=== PATIENT | male | born 1960 | race Caucasian/White ===

== ENCOUNTER 2023-04-01 10:13 | Inpatient (IN) ==
--- NOTE | 2023-03-11 10:20 | PAT Medication Instructions ---
Medication Instructions Date of Service March 11, 2023 Home Medications atorvastatin 40 mg tablet 40 mg PO QPM warfarin 10 mg tablet (Coumadin) 10 mg PO QPM cyclobenzaprine 10 mg tablet 10 mg PO HS gabapentin 300 mg capsule 300 mg PO TID hydrocodone 5 mg-acetaminophen 325 mg tablet 1 tab PO HS PRN Pain potassium 0 tab PO QPM ASK your prescriber and surgeon warfarin 10 mg tablet (Coumadin) 10 mg PO QPM Take morning of surgery With a small sip of water, OTHERWISE NOTHING TO EAT OR DRINK AFTER MIDNIGHT: gabapentin 300 mg capsule 300 mg PO TID Take evening before surgery atorvastatin 40 mg tablet 40 mg PO QPM cyclobenzaprine 10 mg tablet 10 mg PO HS gabapentin 300 mg capsule 300 mg PO TID hydrocodone 5 mg-acetaminophen 325 mg tablet 1 tab PO HS PRN Pain (if needed) potassium 0 tab PO QPM Other Notes If you have any questions please call us at [phone] or [phone] or [phone] or [phone]
--- NOTE | 2023-03-18 11:21 | Anesthesiology Consultation ---
Date of Service March 18, 2023 Assessment & Plan (1) Encounter for pre-operative examination: Plan - check coags STAT am DOS. - will request more detailed 05/15/22 cardiac catheterization from [facility] if available, for chart completion. - medical clearance 03/12/23: "...pre-operative clearance for back surgery...risk stratification is low to intermediate...cardiac catheterization done May 2022 noted mild non-obstructive disease...intermediate cardiac risk..." Chart Review Chart Review: Pending: Refer to Additional Notes / Consult section and Patient seen in Pre Admission Testing Teaching & Discussion Pre-Anesthesia Teaching/Discussion Notes: Instructed NPO after midnight before surgery, except medications with 15 cc of water. Medication instructions provided according to the PAT guidelines. History Surgery Operation Date: 04/01/23 10:05 Proposed Procedures p L2-S1 Decompression and Fusion, Spinal Cord Monitoring - Royal Shaikh DO Height/Weight Height: 5 ft 8 in Weight: 114.7 kg Allergies Allergy/AdvReac Type Severity Reaction Status Date / Time acetaminophen [From Percocet] AdvReac Severe chills, Verified 03/11/23 09:36 nausea codeine AdvReac Severe nausea,chil Verified 03/11/23 09:36 ls oxycodone [From Percocet] AdvReac Severe chills, Verified 03/11/23 09:36 nausea Medications Home Medications Medication Instructions Recorded Confirmed Last Taken atorvastatin 40 mg tablet 40 mg PO QPM 01/21/19 03/11/23 Unknown warfarin 10 mg tablet (Coumadin) 10 mg PO QPM 01/21/19 03/11/23 Unknown cyclobenzaprine 10 mg tablet 10 mg PO HS 03/11/23 03/11/23 Unknown gabapentin 300 mg capsule 300 mg PO TID 03/11/23 03/11/23 Unknown hydrocodone 5 mg-acetaminophen 325 1 tab PO HS PRN Pain 03/11/23 03/11/23 Unknown mg tablet potassium 0 tab PO QPM 03/11/23 03/11/23 Unknown Past Medical History Medical History (Updated 03/18/23 @ 11:35 by Claudia Griffiths PA-C) GERD (gastroesophageal reflux disease) occasional Spinal stenosis of cervical region Moderate to severe at C5-6 with chronic neck pain, denies change or worsening CVA (cerebral vascular accident) 2005 after aortic valve replacement, no deficits Sleep apnea CPAP-compliant Chronic anticoagulation follows [facility] and Dr Cari Crawford (prescribes) next appointment 03/12/2023 Patient denies h/o seizures, heart attack, heart failure, DM, HTN, blood clots/DVTs or blood transfusions. Exercise / Class Metabolic Activity II 4-5 Yardwork/Stairs/Walk up hill (denies chest discomfort or shortness of breath with 1 FOS) Past Surgical History Surgical History History of tonsillectomy History of cardiac cath [facility] 2021 History of elbow surgery left History of hip surgery left hip surgery after fracture Mechanical heart valve present aortic 2005 [facility] Past Anesthesia History No Hx of Anesthesia Complications and No Family Hx of Anesthesia Complications History of PONV No Hx of PONV and No Hx of Motion Sickness Social History Smoking Status: Never smoker Do You Dip or Chew Tobacco: No Hx Alcohol Use: Yes Alcohol type: beer alcohol intake frequency: a few times a month Hx Substance Use: No Review of Systems Patient denies chest pain, shortness of breath, dyspnea on exertion, fever, chills, cough, wheezing, or palpitations. Physical Exam Vital Signs Vitals BP 124/82 P 93 TEMP 98.8 SP02 99% on RA RESP 17 Physical Patient resting comfortably in chair in no acute distress, alert and oriented, responding appropriately throughout visit Mildly limited cervical extension range of motion without pain TMD 3.5 finger breadths Mallampati Score 2 Dentition: intact, denies chipped or loose teeth, caps/crowns, implants or bridges Lungs: normal respiratory effort. Good air movement, clear throughout to auscultation, no adventitious breath sounds Cardiac: regular rate and rhythm, no murmurs noted Carotid arteries: negative bruit bilat Lab Results Anesthesia Preop Results Results Anesthesia Widget: WBC 6.26 K/ul (4.8-10.8) 03/18/23 Hgb 15.5 g/dl (14.0-18.0) 03/18/23 Hct 45.5 % (42.0-52.0) 03/18/23 Plt 213 K/uL (130-400) 03/18/23 Na 139 mmol/L (136-145) 03/18/23 K 3.8 mmol/L (3.5-5.1) 03/18/23 Cl 104 mmol/L (98-107) 03/18/23 CO2 27 mmol/L (21-32) 03/18/23 BUN 13 mg/dl (6-23) 03/18/23 Creat 1.01 mg/dl (0.6-1.4) 03/18/23 Glucose Level 87 mg/dl (70-99(Fasting)) 03/18/23 PT 25.3 Seconds (9.0-12.0) H 03/18/23 PTT 39.3 Seconds (21.0-31.0) H 03/18/23 INR 2.4 (0.9-1.1) H 03/18/23 Urine Color Yellow 03/18/23 Urine Appearance Clear (Clear) 03/18/23 Urine pH 6.0 (4.5-7.5) 03/18/23 Urine Specific [place] 1.018 (1.000-1.030) 03/18/23 Urine Protein Negative (Negative) 03/18/23 Urine Glucose (UA) Negative (Negative) 03/18/23 Urine Ketones Negative (Negative) 03/18/23 Urine Blood Negative (Negative) 03/18/23 Urine Nitrite Negative (Negative) 03/18/23 Urine Bilirubin Negative (Negative) 03/18/23 Urine Urobilinogen Negative (Negative) 03/18/23 Urine Leukocyte Esterase 1+ (Negative) H 03/18/23 Urine WBC (Auto) 10-30 /hpf (0-5) H 03/18/23 Urine RBC (Auto) 0-4 /hpf (0-4) 03/18/23 Urine Hyaline Casts (Auto) 1-5 /lpf (0-5) 03/18/23 Urine Epithelial Cells (Auto) 5-10 /lpf (0-5) H 03/18/23 Urine Bacteria (Auto) Negative (Negative) 03/18/23 Blood Type O Positive 03/18/23 Antibody Screen NEGATIVE 03/18/23 Testing Electrocardiogram Date: 05/15/22 NSR, rate 74 bpm Chest X-Ray Date: 03/18/23 Cardiomegaly without acute process Echocardiogram Date: 03/21/22 EF 55-60% Mechanical aortic prosthetic valve Borderline pulmonary HTN Stress Test Date: 04/25/22 Inferior wall ischemia Subsequent 05/15/22 cardiac catheterization, image with notations indicates no stenting needed-request placed for more detailed report if available.
[~2023-04-01 10:13] MED LIST: CeleBREX 200 MG CAP PO SCH; GABAPENTIN 600 MG DOSE PO SCH; LR 15ML/HR IV SCH; LR 60ML/HR IV SCH; ceFAZolin 2000MG 2,000 MG/15 ML SYR IV SCH
[2023-04-01] MEDS ORDERED: MIDAZOLAM HCL 1 MG/ML 2ML VIAL ONE (10:45)
[2023-04-01] MEDS ORDERED: fentaNYL citrate PF 100 MCG/2 ML VIAL ONE (10:45)
--- NOTE | 2023-04-01 11:03 | History & Physical Bridge Note ---
Date of Service April 01, 2023 History & Physical Bridge Note I have examined the patient, reviewed the History & Physical and in the interval since the performance of the History & Physical I have noted the following changes of clinical significance: no changes noted
--- NOTE | 2023-04-01 11:05 | History & Physical Report ---
Date of Service April 01, 2023 Assessment & Plan (1) Neurogenic claudication due to lumbar spinal stenosis: Plan: L2-S1 decompression and fusion History of Present Illness Chief Complaint: Back and bilateral leg pain Primary Care Provider: Cari Crawford This is a 8-year-old male who presents with chronic persistent back and leg pain after failing course of nonoperative care is here for surgical invention. Allergies Allergy/AdvReac Type Severity Reaction Status Date / Time acetaminophen [From Percocet] AdvReac Severe chills, Verified 04/01/23 10:34 nausea codeine AdvReac Severe nausea,chil Verified 04/01/23 10:34 ls oxycodone [From Percocet] AdvReac Severe chills, Verified 04/01/23 10:34 nausea Home Medications Medication Instructions Recorded Confirmed Type atorvastatin 40 mg tablet 40 mg PO QPM 01/21/19 04/01/23 History warfarin 10 mg tablet (Coumadin) 10 mg PO QPM 01/21/19 04/01/23 History cyclobenzaprine 10 mg tablet 10 mg PO HS 03/11/23 04/01/23 History gabapentin 300 mg capsule 300 mg PO TID 03/11/23 04/01/23 History hydrocodone 5 mg-acetaminophen 325 1 tab PO HS PRN Pain 03/11/23 04/01/23 History mg tablet potassium 0 tab PO QPM 03/11/23 04/01/23 History Past Med/Surg History Medical History (Updated 04/01/23 @ 11:05 by Royal Shaikh DO) GERD (gastroesophageal reflux disease) occasional Spinal stenosis of cervical region Moderate to severe at C5-6 with chronic neck pain, denies change or worsening CVA (cerebral vascular accident) 2005 after aortic valve replacement, no deficits Sleep apnea CPAP-compliant Chronic anticoagulation follows [facility] and Dr Cari Crawford (prescribes) next appointment 03/12/2023 Surgical History History of tonsillectomy History of cardiac cath [facility] 2021 History of elbow surgery left History of hip surgery left hip surgery after fracture Mechanical heart valve present aortic 2005 [facility] Social History (Updated 01/21/19 @ 08:32 by Priscilla Ramírez, JACQUIE) Smoking Status: Never smoker Second Hand Exposure: No; Do You Dip or Chew Tobacco: No; Tobacco Cessation Education Requested by Patient: No Hx Alcohol Use: Yes Alcohol type: beer Hx Substance Use: No Preferred Language: Sinhala Communication Ability: Effective Visual Impairment: No Limitations Hearing Ability: Normal Requirements Engineer Required: No Beliefs That Will Affect Care: None marital status: Current Living Situation: Spouse current occupational status: employed current occupation: construction driller Other Information That Helps Us Care for You: No Feels Safe at Home: Yes Safety Concerns: Feels Safe At This Time Assistive Devices: Contacts Physical Exam Physical Exam: Patient is alert and oriented Heart regular in rhythm Lungs clear Results & Data Results & Data Vital Signs (Past 12 Hours) Vital Signs Temp Pulse Resp BP Pulse Ox O2 Del Method 04/01/23 10:38 Room Air 04/01/23 10:38 36.9 C 98 H 20 134/95 100 Room Air
[2023-04-01 11:18] LABS: INR 1.1 (0.9-1.1); Partial Thromboplastin Ratio 1.1; Partial Thromboplastin Time 30.5 Seconds (21.0-31.0); Prothrombin Time 11.7 Seconds (9.0-12.0)
[2023-04-01] MEDS ORDERED: ceFAZolin 330 MG/ML 1 GM VIAL ONE (11:25)
[2023-04-01] MEDS ORDERED: ONDANSETRON INJ 2 MG/ML 2 ML VIAL IV PRN ×2 (11:25→17:03)
[2023-04-01] MEDS ORDERED: BUPIVACAINE/EPINEPHRINE 0.25% 1:200,000 30 ML VIAL ONE (11:25)
[2023-04-01] MEDS ORDERED: fentaNYL citrate PF 100 MCG/2 ML VIAL IV PRN (11:25)
[2023-04-01] MEDS ORDERED: ATROPINE SULFATE 0.1 MG/ML 10ML SYR IV PRN (11:25)
[2023-04-01] MEDS ORDERED: ePHEDrine sulfate 50 MG/ML AMP IV PRN (11:25)
[2023-04-01] MEDS ORDERED: PROPOFOL IV EMULSION 10 MG/ML 20 ML VIAL IV ONE (12:08)
[2023-04-01] MEDS ORDERED: LIDOCAINE 2% 2 ML VIAL/AMP(20MG/ML) INFIL ONE (12:08)
[2023-04-01] MEDS ORDERED: GLYCOPYRROLATE 0.2 MG/ML VIAL ONE (12:08)
[2023-04-01] MEDS ORDERED: ROCURONIUM BROMIDE 10 MG/ML 5 ML VIAL IV ONE ×3 (12:08→13:16)
[2023-04-01] MEDS ORDERED: DEXAMETHASONE SOD INJ 4 MG/ML VIAL ONE (12:08)
[2023-04-01] MEDS ORDERED: diphenhydrAMINE 50 MG/ML VIAL ONE ×2 (12:08→12:12)
[2023-04-01] MEDS ORDERED: ONDANSETRON INJ 2 MG/ML 2 ML VIAL ONE (12:08)
[2023-04-01] MEDS ORDERED: HYDROmorphone INJ 2 MG/ML SYR/VIAL ONE (12:16)
[2023-04-01] MEDS ORDERED: ALBUTEROL HFA 8 GM INHALER INH ONE (13:10)
[2023-04-01] MEDS ORDERED: SUGAMMADEX SODIUM 200 MG/2 ML VIAL IV ONE ×2 (13:24→14:07)
[2023-04-01] MEDS ORDERED: FLOSEAL HEMOSTATIC MATRIX 10ML TOP ONE (13:39)
[2023-04-01] MEDS ORDERED: SURGICEL ABSORB HEMOSTAT 2IN X 14IN TOP ONE (14:00)
--- NOTE | 2023-04-01 14:21 | Operative Report ---
Post Operative Report Pre & Post Diagnosis Operation Date: 04/01/23 11:25 Pre-Op Diagnosis: Neurogenic claudication due to lumbar spinal stenosis Spondylolisthesis L4-L5 Obesity Post-Op Diagnosis: Same I identified the patient and participated in the time-out.: Yes Procedure Operation Date: 04/01/23 11:25 Actual Procedures #1 lumbar decompression bilaterally facetectomies and foraminotomies L2-L3, L3- L4 and L4-5. #2 posterior spinal fusion L3 L5. #3 placed posterior instrumentation L3-L5. #4 interbody fusion L3-L4 L4-5. #5 placement spiral 14 x 26 mm at L3-L4 and 13 x 26 mm x 2 at L4-L5. #6 placement locally harvested morselized autograft and posterior gutters. #7 placement of I factor in the interbody space and infuse collagen sponge by mass graft in the posterior gutters. Surgeon Royal Shaikh, DO Director Of Special Events Adilia De Oliveira Estimated Blood Loss 700 Findings See Below Patient is 5 foot 8 weighing over 112 kg with a BMI in excess of 37. This combined with an EBL of greater than 700 cc created significant technical difficulty and at least 50% increased operative time. Specimens None Indications This is a 62-year-old male who presents above-mentioned diagnosis after failed course of nonoperative care is here for surgical invention. Description of Procedure Patient was met with identified informed consent obtained. Patient was then taken to the operative suite underwent patient placed in a prone position the [facility] top Jose frame. All bony promises well-padded eyes inspected to ensure no external precipice monitor at this point lumbar spine was prepped and draped in normal sterile fashion. Sharp dissection with the assistance of Bovie cautery form down to and exposing the lamina and transverse processes of L3-L4-L5. From caudal cephalad fashion complete laminectomy of L4 L3 and partial laminectomy of L2 was performed including bilateral medial facetectomies and foraminotomies addressing severe spinal stenosis as well as massive disc herniation centrally at L3-L4. After complete decompression pedicle screws were placed in L3 L4-5 bilaterally with assistance of fluoroscopy and properly sized dionicio contoured and placed. By way of transforaminal approach on the left a discectomy of L4-5 was performed endplates guarded to subcortical bleeding bone and a 13 x 26 mm Spira cage with I factor tapped in position. Then proceeded to the right side of L4-5 transforaminal region completed the discectomy curetted the endplates to subcortical bleeding bone and placed a second 13 x 26 mm Spira cage both I factor. I then proceeded to L3-L4 and again by way of transforaminal approach on the right at discectomy was performed endplates guarded to subcortical bleeding bone and a 14 x 26 mm Spira cage with I factor tapped in position. The rods then compressed locked in final position bilaterally per the transverse processes L3 L4-5 burred to subcortical bleeding bone. Infuse collagen sponge, mass graft locally harvested morselized autograft was placed in the posterior gutters. 15 round JOY inserted. Incision was then closed with 1 Vicryl and fascia 2-0 Vicryl subcutaneously and 4 Monocryl for final skin closure. Steri-Strips sterile dressing placed. Patient waken taken to PACU in stable condition. Please note spinal cord monitoring was utilized at the procedure no changes noted. Lastly Adilia De Oliveira was present at the entire surgeon while the patient positioning complex portions of the surgery and final skin closure. I attest to the content of the Intraoperative Record and any orders documented therein. Any exceptions are noted below.
--- NOTE | 2023-04-01 15:35 | Anesthesiology Progress Note ---
Date of Service April 01, 2023 Anesthesia Post Procedure Vital Signs Vital Signs: Temp Pulse Pulse Resp BP Pulse Ox O2 Del Method 04/01/23 15:25 108 H 12 138/80 97 Room Air 04/01/23 15:15 97.9 F 112 H 12 143/91 H 95 Room Air 04/01/23 15:05 109 H 12 147/99 H 94 Room Air 04/01/23 14:55 107 H 13 155/94 H 97 Room Air 04/01/23 14:45 105 H 12 146/95 H 100 Oxymask 04/01/23 14:36 97.2 F L 109 H 13 167/111 H 100 Oxymask 04/01/23 10:38 Room Air 04/01/23 10:38 98.4 F 98 H 20 134/95 100 Room Air O2 Flow Rate 04/01/23 15:25 04/01/23 15:15 04/01/23 15:05 04/01/23 14:55 04/01/23 14:45 8 04/01/23 14:36 8 04/01/23 10:38 04/01/23 10:38 Pain Intensity Bilateral Lower Back: Pain Intensity: 8 Transfer of Care Handoff Completed per policy Notes Mental Status: alert / awake / arousable and participated in evaluation Patient Amnestic to Procedure: Yes Nausea / Vomiting: adequately controlled Pain: adequately controlled Airway Patency, RR, SpO2: stable & adequate BP & HR: stable & adequate Hydration State: stable & adequate Anesthetic Complications: no major complications apparent and Pt Satisfied with anesthetic care
--- NOTE | 2023-04-01 15:35 | Fluoroscopy Report ---
INTRAOPERATIVE RADIOGRAPHS CLINICAL HISTORY: L3-L5 spinal fusion. Fluoro time: 25 seconds Ka,r: 25.29 mGy FINDINGS: 2 spot fluoroscopic views of the lumbar spine are presented. There has been discectomy at L 3-L4 and L4-L5 with laminectomy and posterior fusion at L3-L5. Interpedicular screws are present at a ll levels. The orthopedic hardware appears intact. IMPRESSION: Intraoperative images from the lumbar spinal fusion surgery as above. Electronically signed by: Dom Goldstein M.D. 04/01/2023 3:33 PM
[2023-04-01] MEDS ORDERED: ACETAMINOPHEN 500 MG TAB PO PRN (17:03)
[2023-04-01] MEDS ORDERED: HYDROCODONE/ACETAMOPHEN 5/325MG TAB PO PRN (17:03)
[2023-04-01] MEDS ORDERED: PROMETHAZINE HCL 12.5 MG in SODIUM CHLORIDE 0.9% 50 ML IV PRN (17:03)
[2023-04-01] MEDS ORDERED: hydrOXYzine HCl 25 MG TAB PO PRN (17:03)
[2023-04-01] MEDS ORDERED: DO NOT ADMINISTER PNEUMOCOCCAL VACCINE PRN (17:03)
[2023-04-01] MEDS ORDERED: FAMOTIDINE 20 MG TAB PO PRN (17:03)
[2023-04-01] MEDS ORDERED: LORazepam 0.5 MG TAB PO PRN (17:03)
[2023-04-01] MEDS ORDERED: ALUMINUM/MAGNESIUM SUSP 30 ML UDC PO PRN (17:03)
[2023-04-01] MEDS ORDERED: SOD PHOSPHATE/SOD BIPHOSPHATE ENEMA 132 ML BTL PR PRN (17:03)
[2023-04-01] MEDS ORDERED: LORazepam 0.5 MG in SYRINGE 0.25 ML IV PRN (17:03)
[2023-04-01] MEDS ORDERED: diphenhydrAMINE Capsule 25 MG CAP PO PRN (17:03)
[2023-04-01] MEDS ORDERED: MAGNESIUM HYDROXIDE SUSP 30 ML UDC PO PRN (17:03)
[2023-04-01] MEDS ORDERED: ACETAMINOPHEN 1,000 MG/100 ML VIAL IV PRN (17:03)
[2023-04-01] MEDS ORDERED: ONDANSETRON 4 MG OD TAB PO PRN (17:03)
[2023-04-01] MEDS ORDERED: NALOXONE HCL 0.4 MG/1 ML VIAL/CARP IV PRN (17:03)
[2023-04-01] MEDS ORDERED: HYDROmorphone INJ 1 MG/ML SYRINGE IV PRN (17:03)
[2023-04-01] MEDS ORDERED: HYDROmorphone INJ 0.5 MG/0.5 ML SYR IV PRN (17:03)
[2023-04-01] MEDS ORDERED: bisacodyL 10 MG SUPP PR PRN (17:03)
[2023-04-01] MEDS ORDERED: DO NOT ADMINISTER FLU VACCINE PRN (17:03)
[2023-04-01] MEDS ORDERED: METOCLOPRAMIDE HCL INJ 5 MG/ML 2 ML VIAL IV PRN (17:03)
[2023-04-01] MEDS: LACTATED RINGER'S 1,000 ML IV SCH ×2 (17:31→20:48)
--- NOTE | 2023-04-01 17:44 | Hospitalist Consultation ---
Date of Consultation April 01, 2023 Assessment & Plan (1) Neurogenic claudication due to lumbar spinal stenosis: POD# 0 L2-S1 decompression and fusion by Dr. Shaikh Activity and wound care orders as per ortho Pain control with bowel regimen PT/OT Monitor H/H for acute blood loss anemia and transfuse blood products PRN EBL 700 cc (2) Mechanical heart valve present: History of mechanical aortic valve replacement in 2006 Anticoagulated on Coumadin Start Lovenox bridge when deemed acceptable by spine Ortho (3) CVA (cerebral vascular accident): History of, without residual side effect Continue statin (4) Sleep apnea: Chronic, stable CPAP as per home settings DVT PROPHYLAXIS TEDs/SCDs as per spine Ortho Patient seen in collaboration with Dr. Lopez. Thank you for this consultation. We will follow the patient with you during their hospital stay. You can reach a member of the [facility] Team 24/11 via the [facility] role in [place] [employer]. Supervising Physician Co-Signing Physician Notes Patient is a 62-year-old male with history of coronary artery disease, CVA, S/P AVR on chronic anticoagulation with Coumadin, valvular heart disease, hypertension, obstructive sleep apnea on CPAP was consulted for postop medical management by Dr. Shaikh. Patient had neurogenic claudication due to lumbar spinal stenosis and spondylolisthesis L4-L5 and had lumbar decompression, fusion surgery on 04/01/2023. Patient notices to have minimal left hand/finger numbness postoperatively but denies any significant weakness. Also denies any chest pain, dyspnea, dizziness, nausea, abdominal pain. Reports having chronic left foot drop which is unchanged. Physical Exam: Vitals signs as noted above General Appearance:Obese, no apparent distress Head: normocephalic, Atraumatic Eyes: normal inspection, EOMI Neck: supple, Trachea midline Respiratory/Chest: Normal breath sounds, CTA, No accessory muscle use Cardiovascular: Mechanical heart sounds, +murmur Abdomen/GI:Soft, Non tender, Bowel sounds present Extremities/Musculoskeletal:normal inspection, no edema, Left foot drop Neurologic/Psych:AAOX3, grossly no focal neurological deficits, Left hand sensation present Skin: normal color, warm S/P lumbar decompression, fusion surgery for neurogenic claudication of lumbar spinal stenosis Monitor for postop anemia Pain control, bowel regimen to prevent constipation PT OT as able Incentive spirometry Wound care, activity, DVT prophylaxis as per primary team Mechanical heart valve S/P AVR Start Lovenox bridge as able once cleared by orthopedic surgery Left hand minimal Numbness Likely due to positioning while surgery Ortho aware per RN Consider further imaging if needed/no resolution Sensation still present on exam I personally reviewed the record. Patient is interviewed and examined at bedside. Patient's care is coordinated with Roslyn Cano BAKED AND GRAPHITE INSPECTOR. Please refer to the documentation above for details of patient's presentation and for discussion of other issues. History of Present Illness Reason for Consultation: Post Op Medical Management Requesting Physician: Dr. Shaikh Attending Physician: Royal Shaikh, History of Present Illness 62 year old male with PMH mechanical aortic valve on Coumadin, history of CVA, dyslipidemia, ROSALINDA on CPAP, and other problems listed below who is s/p L2-S1 decompression and fusion today by Dr. Shaikh. Post operatively the patient is doing well. He reports his pain is well controlled. Reports left hand tingling. Patient has chronic left sided foot drop that is unchanged from baseline. No chest pain or shortness of breath. Denies lightheadedness and dizziness. No abdominal pain or nausea. Willams catheter is in place draining clear yellow urine. Allergies Allergy/AdvReac Type Severity Reaction Status Date / Time acetaminophen [From Percocet] AdvReac Severe chills, Verified 04/01/23 10:34 nausea codeine AdvReac Severe nausea,chil Verified 04/01/23 10:34 ls oxycodone [From Percocet] AdvReac Severe chills, Verified 04/01/23 10:34 nausea Home Medications Medication Instructions Recorded Confirmed Type atorvastatin 40 mg tablet 40 mg PO QPM 01/21/19 04/01/23 History warfarin 10 mg tablet (Coumadin) 10 mg PO QPM 01/21/19 04/01/23 History cyclobenzaprine 10 mg tablet 10 mg PO HS 03/11/23 04/01/23 History gabapentin 300 mg capsule 300 mg PO TID 03/11/23 04/01/23 History hydrocodone 5 mg-acetaminophen 325 1 tab PO HS PRN Pain 03/11/23 04/01/23 History mg tablet potassium 0 tab PO QPM 03/11/23 04/01/23 History Patient History Medical History CVA (cerebral vascular accident) 2006 after aortic valve replacement, no deficits Sleep apnea CPAP-compliant GERD (gastroesophageal reflux disease) occasional Spinal stenosis of cervical region Moderate to severe at C5-6 with chronic neck pain, denies change or worsening Chronic anticoagulation follows [facility] and Dr Cari Crawford (prescribes) next appointment 03/12/2023 Surgical History History of tonsillectomy History of cardiac cath [facility] 2021 History of elbow surgery left History of hip surgery left hip surgery after fracture Mechanical heart valve present aortic 2006 [facility] Social History Smoking Status: Never smoker Second Hand Exposure: No; Do You Dip or Chew Tobacco: No; Tobacco Cessation Education Requested by Patient: No Hx Alcohol Use: Yes Alcohol type: beer Hx Substance Use: No Preferred Language: Japanese Communication Ability: Effective Visual Impairment: No Limitations Hearing Ability: Normal Corral Boss Required: No Beliefs That Will Affect Care: None marital status: Current Living Situation: Spouse current occupational status: employed current occupation: construction project administrator Other Information That Helps Us Care for You: No Feels Safe at Home: Yes Safety Concerns: Feels Safe At This Time Assistive Devices: Contacts Review of Systems Review of Systems: All systems reviewed & are unremarkable except as noted in Subjective Physical Exam Physical Exam: Please refer to Dr. Lopez's addendum for physical exam Results & Data Results & Data Vital Signs (Past 12 Hours) Vital Signs Temp Pulse Pulse Resp BP Pulse Ox O2 Del Method 04/01/23 17:03 36.4 C L 104 H 18 118/81 95 Room Air 04/01/23 16:30 105 H 12 121/70 95 Room Air 04/01/23 16:15 101 H 12 119/71 96 Nasal Cannula 04/01/23 15:55 103 H 12 132/76 93 Room Air 04/01/23 15:40 107 H 17 140/92 94 Room Air 04/01/23 15:25 108 H 12 138/80 97 Room Air 04/01/23 15:15 36.6 C 112 H 12 143/91 H 95 Room Air 04/01/23 15:05 109 H 12 147/99 H 94 Room Air 04/01/23 14:55 107 H 13 155/94 H 97 Room Air 04/01/23 14:45 105 H 12 146/95 H 100 Oxymask 04/01/23 14:36 36.2 C L 109 H 13 167/111 H 100 Oxymask 04/01/23 10:38 Room Air 04/01/23 10:38 36.9 C 98 H 20 134/95 100 Room Air O2 Flow Rate 04/01/23 17:03 04/01/23 16:30 2 04/01/23 16:15 2 04/01/23 15:55 04/01/23 15:40 04/01/23 15:25 04/01/23 15:15 04/01/23 15:05 04/01/23 14:55 04/01/23 14:45 8 04/01/23 14:36 8 04/01/23 10:38 04/01/23 10:38
[2023-04-01] MEDS: DOCUSATE SODIUM/SENNA 50/8.6MG TAB PO SCH (20:43)
[2023-04-01] MEDS: GABAPENTIN 300 MG CAP PO SCH (20:44)
[2023-04-01] MEDS: ATORVASTATIN 40 MG TAB PO SCH (20:44)
[2023-04-01] MEDS: ceFAZolin 2000MG 2,000 MG/15 ML SYR IV SCH (20:44)
[2023-04-02] MEDS: ceFAZolin 2000MG 2,000 MG/15 ML SYR IV SCH (05:10)
[2023-04-02] MEDS: POLYETHYLENE (MIRALAX) 17 GM PACK PO SCH ×3 (05:10→16:16)
[2023-04-02] MEDS: dexAMETHasone 6 MG in SYRINGE 0 ML IV SCH (07:39)
[2023-04-02] MEDS: GABAPENTIN 300 MG CAP PO SCH ×3 (07:39→20:48)
[2023-04-02 07:57] LABS: Basophils # (auto) 0.02 K/uL (0.00-0.20); Basophils % (auto) 0.2 %; Eosinophils # (auto) 0.04 K/uL (0.00-0.50); Eosinophils % (auto) 0.4 %; Hemoglobin 12.6 g/dl (14.0-18.0); Immature Granulocytes # (auto) 0.04 K/uL (0.01-0.20); Immature Granulocytes % (auto) 0.4 %; Lymphocytes # (auto) 1.61 K/uL (1.20-3.40); Lymphocytes % (auto) 16.9 %; Mean Corpuscular Volume 88.7 fL (80.0-100.0); Monocytes # (auto) 0.84 K/uL (0.11-0.59); Monocytes % (auto) 8.8 %; Neutrophils # (auto) 6.97 K/uL (1.40-6.50); Neutrophils % (auto) 73.3 %; Platelet Count 170 K/uL (130-400); RDW Coefficient of Variation 13.1 % (11.5-14.5); RDW Standard Deviation 42.5 fL (36.4-46.3); Red Blood Count 4.06 M/uL (4.70-6.10); White Blood Count 9.52 K/ul (4.8-10.8)
[2023-04-02 08:13] LABS: Calcium 8.2 mg/dl (8.6-10.3); Creatinine Clr Calc Pharmacy 124.1 ml/min; Est GFR (African American) 114.3 ml/min; Est GFR (Non-African American) 98.6 ml/min; Potassium 3.3 mmol/L (3.5-5.1)
[2023-04-02 08:19] LABS: INR 1.1 (0.9-1.1); Prothrombin Time 11.5 Seconds (9.0-12.0)
--- NOTE | 2023-04-02 08:51 | Orthopedic Progress Note ---
Date of Service April 02, 2023 Assessment & Plan (1) Neurogenic claudication due to lumbar spinal stenosis: Plan: At this time we will continue physical therapy monitor JOY output and anticipate reinitiating Lovenox bridge to Coumadin very soon. Admission and Anticipated Discharge Date Admission Date: April 01, 2023 Subjective Back pain controlled leg pain improved Physical Exam Physical Exam: Patient is in the bed. He is comfortable. Is good strength testing the right lower extremity. His brace on the left lower extremity. He has been up and ambulating earlier. Results & Data Vital Signs (Past 12 Hours) Vital Signs Temp Pulse Pulse Resp BP Pulse Ox O2 Del Method 04/02/23 08:13 36.5 C 100 H 18 116/76 99 Room Air 04/02/23 04:12 36.5 C 92 H 18 131/82 98 CPAP 04/01/23 23:28 36.4 C L 97 H 18 137/84 97 CPAP 04/01/23 21:43 Nasal Cannula, CPAP Queries Orthopedic Spine Obesity: Yes
[2023-04-02] MEDS ORDERED: POTASSIUM CHLORIDE CRTAB 20 MEQ TABCR PO STA (09:46)
--- NOTE | 2023-04-02 09:48 | Hospitalist Progress Note ---
Date of Service April 02, 2023 Assessment & Plan (1) Neurogenic claudication due to lumbar spinal stenosis: Plan: POD# 1 L2-S1 decompression and fusion by Dr. Shaikh Activity and wound care orders as per ortho Pain control with bowel regimen PT/OT Monitor H/H for acute blood loss anemia and transfuse blood products PRN EBL 700 cc (2) Mechanical heart valve present: Plan: History of mechanical aortic valve replacement in 2006 Anticoagulated on Coumadin Higher perioperative risk of bleeding and clotting as noted above. After conversations with anticoagulation specialist, ortho spine surgeon, and the patient. Start Lovenox bridge now-Lovenox 100mg SQ q12h with warfarin 10mg PO daily (typical home dose coumadin is 10mg daily) I did reach out to his [place] Director Business Travel, Dr. Cedillo and left a message to review his plan. He has an Tre valve in place that is a lower risk valve (not higher risk ball in cage valve). Goal INR is 2-3, will check this daily during admission. (3) CVA (cerebral vascular accident): Plan: History of, without residual side effect Continue statin, anticoagulation plan as noted above. (4) Morbid obesity: (5) Sleep apnea: Plan: Chronic, stable CPAP as per home settings DVT PROPHYLAXIS TEDs/SCDs, Lovenox/warfarin as above Full Code Dispo- per ortho spine. Thank you for this consultation. We will follow the patient with you during their hospital stay. You can reach a member of the [facility]11 via the [facility] role in [place] Text. I spent a total of60 minutes coordinating, documenting, and providing care for this patient excluding time spent in the performance of separately billed services Christina Suero DO [facility] Admission and Anticipated Discharge Date Admission Date: April 01, 2023 Subjective 62 yo M admitted for elective lumbar decompression surgery. He is recovering well post operatively. The most concerning thing today for the patient is restarting his anticoagulation bridge for his mechanical valve. He was told "by the PA at my button broacher's office" to restart AC as soon as possible post operatively, even same night of surgery. Spoke with Dr. Jacob-anticoagulation specialist regarding case and mentioned this with patient and his who is at bedside today and assists [facility] history. New guidelines don't even require bridging for low risk patients with a mechanical aortic valve. He is higher risk with h/o CVA, so given high bleeding risk procedure, it was felt that AC should be started no earlier than 24 hours, and even recommended to start as far out as 48 hours post op. The patient and his verbalized their understanding of the bleeding risk and preferred to start AC now. Physical Exam Physical Exam: CONSTITUTIONAL: obese, vitals as above, generally well-appearing, NAD EYES: normal conjunctivae, no scleral icterus ENT: external ear and nose normal, MMM NECK: trachea midline RESPIRATORY: clear to auscultation bilaterally, no crackles, rales or wheezes, normal respiratory effort CARDIOVASCULAR: regular rate and rhythm, S1 and 2 heard without murmurs, gallops or rubs, no JVD, no peripheral edema CHEST: inspection of chest was normal GASTROINTESTINAL: soft, nontender, ND, no guarding MUSCULOSKELETAL: strength 5/5 throughout x LLE where is has a lower extremity brace in place for chronic foot drop, head is normocephalic and atraumatic SKIN: warm and dry, lower back incision site covered by clean and dry dressings. Two JOY drains in place with normal serosanguineous drainage. NEUROLOGIC: CN 2-12 grossly intact, no sensory deficit, normal cognition, normal speech, no tremor PSYCHIATRIC: alert cooperative and oriented to person, place and time. Results & Data Results & Data Vital Signs (Past 12 Hours) Vital Signs Temp Pulse Pulse Resp BP Pulse Ox O2 Del Method 04/02/23 08:13 36.5 C 100 H 18 116/76 99 Room Air 04/02/23 04:12 36.5 C 92 H 18 131/82 98 CPAP 04/01/23 23:28 36.4 C L 97 H 18 137/84 97 CPAP Laboratory Results Short CBC 04/02/23 Range/Units 07:37 WBC 9.52 (4.8-10.8) K/ul Hgb 12.6 L (14.0-18.0) g/dl Hct 36.0 L (42.0-52.0) % Plt Count 170 (130-400) K/uL BMP 04/02/23 07:37 Sodium 136 Potassium 3.3 L Chloride 101 Carbon Dioxide 29 BUN 10 Creatinine 0.77 Glucose 100 H Calcium 8.2 L Medications Administered Current Inpatient Medications Acetaminophen (Acetaminophen 500 Mg Tab) 1,000 mg PO Q8H PRN PRN Reason: MILD Pain Scale 1,2,3 & Pre PT Stop: 05/01/23 17:02 Hydrocodone Bitart/Acetaminophen (Hydrocodone/Acetamophen 5/325mg Tab) 1 - 2 tab PO Q4H PRN PRN Reason: Pain & Pre PT Stop: 04/15/23 17:02 Al Hydrox/Mg Hydrox/Simethicone (Aluminum/Magnesium Susp 30 Ml Udc) 30 ml PO Q6H PRN PRN Reason: Dyspepsia Stop: 05/01/23 17:02 Atorvastatin Calcium (Atorvastatin 40 Mg Tab) 40 mg PO QPM GERALD Stop: 05/01/23 20:59 Last Admin: 04/01/23 20:44 Dose: 40 mg Bisacodyl (Bisacodyl 10 Mg Supp) 10 mg [place] DAILY PRN PRN Reason: Constipation Stop: 05/01/23 17:02 Diphenhydramine HCl (Diphenhydramine Capsule 25 Mg Cap) 25 mg PO Q6H PRN PRN Reason: Allergic Rhinitis/Insomnia Stop: 05/01/23 17:02 Famotidine (Famotidine 20 Mg Tab) 20 mg PO Q12H PRN PRN Reason: Dyspepsia Stop: 05/01/23 17:02 Gabapentin (Gabapentin 300 Mg Cap) 300 mg PO TID [facility] Stop: 05/01/23 20:59 Last Admin: 04/02/23 07:39 Dose: 300 mg Hydromorphone HCl (Hydromorphone Inj 0.5 Mg/0.5 Ml Syr) 0.5 mg IV Q3H PRN PRN Reason: MODERATE Pain (Scale 4,5,6) & Pre PT Stop: 04/15/23 17:02 Hydromorphone HCl (Hydromorphone Inj 1 Mg/Ml Syringe) 1 mg IV Q3H PRN PRN Reason: SEVERE Pain (Scale 7,8,9,10) Stop: 04/15/23 17:02 Hydroxyzine HCl (Hydroxyzine Hcl 25 Mg Tab) 25 mg PO Q8H PRN PRN Reason: Anxiety Stop: 05/01/23 17:02 Promethazine HCl 12.5 mg/ (Sodium Chloride) 50.5 mls @ 202 mls/hr IV Q6H PRN PRN Reason: Nausea &/or Vomiting Stop: 05/01/23 17:02 Acetaminophen (Ofirmev) 1,000 mg in 100 mls @ 400 mls/hr IV Q8H PRN PRN Reason: Pain Rating 1-3 & Pre PT Stop: 04/02/23 17:03 Lorazepam 0.5 mg/ Syringe 0.5 mls @ 2 mls/min IV Q8H PRN; Protocol PRN Reason: Sedation/Anxiety Stop: 05/01/23 17:02 Dexamethasone 6 mg/ Syringe 1.5 mls @ 1 mls/min IV DAILY GERALD Stop: 04/04/23 09:02 Last Admin: 04/02/23 07:39 Dose: 1 mls/min Influenza Virus Vaccine Quadrival (Do Not Administer Flu Vaccine) 1 each N/A PRN PRN PRN Reason: Notification Stop: 05/01/23 17:02 Lorazepam (Lorazepam 0.5 Mg Tab) 0.5 mg PO Q8H PRN PRN Reason: Sedation/Anxiety Stop: 05/01/23 17:02 Magnesium Hydroxide (Magnesium Hydroxide Susp 30 Ml Udc) 30 ml PO Q24H PRN PRN Reason: Constipation Stop: 05/01/23 17:02 Metoclopramide HCl (Metoclopramide Hcl Inj 5 Mg/Ml 2 Ml Vial) 10 mg IV Q6H PRN PRN Reason: Nausea &/or Vomiting Stop: 05/01/23 17:02 Naloxone HCl (Naloxone Hcl 0.4 Mg/1 Ml Vial/Carp) 0.1 mg IV Q5M PRN PRN Reason: Oversedation/Resp depression Stop: 05/01/23 17:02 Ondansetron HCl (Ondansetron Inj 2 Mg/Ml 2 Ml Vial) 4 mg IV Q6H PRN PRN Reason: Nausea &/or Vomiting Stop: 05/01/23 17:02 Ondansetron HCl (Ondansetron 4 Mg Od Tab) 4 mg PO Q6H PRN PRN Reason: Nausea Stop: 05/01/23 17:02 Pneumococcal Polyvalent Vaccine (Do Not Administer Pneumococcal Vaccine) 1 each N/A PRN PRN PRN Reason: Notification Stop: 05/01/23 17:02 Polyethylene Glycol (Polyethylene (Miralax) 17 Gm Pack) 17 gm PO Q6 GERALD Stop: 05/02/23 05:59 Last Admin: 04/02/23 05:10 Dose: 17 gm Potassium Chloride (Potassium Chloride Crtab 20 Meq Tabcr) 40 meq PO NOW STA Stop: 04/02/23 09:47 Senna/Docusate Sodium (Docusate Sodium/Senna 50/8.6mg Tab) 2 tab PO HS GERALD Stop: 05/01/23 20:59 Last Admin: 04/01/23 20:43 Dose: 2 tab Sodium Biphosphate/Sodium Phosphate (Sod Phosphate/Sod Biphosphate Enema 132 Ml Btl) 132 ml ND ONE PRN PRN Reason: Constipation Stop: 05/01/23 17:02
[2023-04-02] MEDS ORDERED: ENOXAPARIN 1 MG/KG SQ SCH (12:45)
[2023-04-02] MEDS: ENOXAPARIN INJ 120 MG/0.8 ML SYR SQ SCH (14:10)
[2023-04-02] MEDS: WARFARIN SOD 10 MG TAB PO SCH (16:16)
[2023-04-02] MEDS: ATORVASTATIN 40 MG TAB PO SCH (20:47)
[2023-04-02] MEDS: DOCUSATE SODIUM/SENNA 50/8.6MG TAB PO SCH (20:47)
[2023-04-03] MEDS: POLYETHYLENE (MIRALAX) 17 GM PACK PO SCH ×5 (00:19→23:19)
[2023-04-03] MEDS: ENOXAPARIN INJ 120 MG/0.8 ML SYR SQ SCH ×2 (00:20→12:48)
--- NOTE | 2023-04-03 07:50 | Hospitalist Progress Note ---
Date of Service April 03, 2023 Assessment & Plan (1) Neurogenic claudication due to lumbar spinal stenosis: Plan: POD# 2 L2-S1 decompression and fusion by Dr. Shaikh Activity and wound care orders as per ortho Pain control with bowel regimen PT/OT Monitor H/H for acute blood loss anemia and transfuse blood products PRN EBL 700 cc (2) Acute blood loss anemia: Plan: 2/2 surgery, stable. Cont to monitor. (3) Mechanical heart valve present: Plan: History of mechanical aortic valve replacement in 2005 Anticoagulated on Coumadin Higher perioperative risk of bleeding and clotting as noted above. After conversations with anticoagulation specialist, ortho spine surgeon, and the patient. Start Lovenox bridge now-Lovenox 100mg SQ q12h with warfarin 10mg PO daily (typical home dose coumadin is 10mg daily) I did reach out to his [employer] Engineer, Dr. Cedillo and left a message to review his plan. He has an Donald valve in place that is a lower risk valve (not higher risk ball in cage valve). Goal INR is 2-3, he states that his goal is actually 2.5-3.5. will check INR daily during admission. (4) CVA (cerebral vascular accident): Plan: History of, without residual side effect Continue statin, anticoagulation plan as noted above. (5) Morbid obesity: (6) Sleep apnea: Plan: Chronic, stable CPAP as per home settings DVT PROPHYLAXIS TEDs/SCDs, Lovenox/warfarin as above Full Code Dispo- per ortho spine. Thank you for this consultation. We will follow the patient with you during their hospital stay. You can reach a member of the [facility] Hospitalist Team 24/11 via the [facility] role in [place] Text. Christina Suero, [facility] Admission and Anticipated Discharge Date Admission Date: April 01, 2023 Subjective 62 yo M admitted for elective lumbar decompression surgery. He is recovering well post operatively. Normal JOY output overnight, watching closely after restarting his anticoagulation. He is feeling well this morning. He denies significant back pain. H/H is stable. Reports the electric shock pain in his legs has resolved Physical Exam Physical Exam: CONSTITUTIONAL: obese, vitals as above, generally well-appearing, NAD EYES: normal conjunctivae, no scleral icterus ENT: external ear and nose normal, MMM NECK: trachea midline RESPIRATORY: clear to auscultation bilaterally, no crackles, rales or wheezes, normal respiratory effort CARDIOVASCULAR: regular rate and rhythm, S1 and 2 heard without murmurs, gallops or rubs, no JVD, no peripheral edema CHEST: inspection of chest was normal GASTROINTESTINAL: soft, nontender, ND, no guarding MUSCULOSKELETAL: strength 5/5 throughout x LLE where is has a lower extremity brace in place for chronic foot drop, head is normocephalic and atraumatic SKIN: warm and dry, lower back incision site covered by clean and dry dressings. Two JOY drains in place with normal serosanguineous drainage. NEUROLOGIC: CN 2-12 grossly intact, no sensory deficit, normal cognition, normal speech, no tremor PSYCHIATRIC: alert cooperative and oriented to person, place and time. Results & Data Results & Data Vital Signs (Past 12 Hours) Vital Signs Temp Pulse Resp BP Pulse Ox O2 Del Method 04/03/23 04:16 36.7 C 102 H 18 123/75 100 Room Air 04/02/23 23:15 36.7 C 100 H 18 135/82 97 CPAP 04/02/23 21:39 CPAP 04/02/23 19:55 36.5 C 94 H 18 133/78 99 Room Air Laboratory Results Short CBC 04/03/23 Range/Units 08:06 WBC 9.60 (4.8-10.8) K/ul Hgb 12.2 L (14.0-18.0) g/dl Hct 34.4 L (42.0-52.0) % Plt Count 169 (130-400) K/uL BMP 04/03/23 08:06 Sodium 138 Potassium 3.3 L Chloride 103 Carbon Dioxide 30 BUN 9 Creatinine 0.78 Glucose 103 H Calcium 8.1 L Medications Administered Current Inpatient Medications Acetaminophen (Acetaminophen 500 Mg Tab) 1,000 mg PO Q8H PRN PRN Reason: MILD Pain Scale 1,2,3 & Pre PT Stop: 05/01/23 17:02 Last Admin: 04/02/23 16:18 Dose: 1,000 mg Hydrocodone Bitart/Acetaminophen (Hydrocodone/Acetamophen 5/325mg Tab) 1 - 2 tab PO Q4H PRN PRN Reason: Pain & Pre PT Stop: 04/15/23 17:02 Al Hydrox/Mg Hydrox/Simethicone (Aluminum/Magnesium Susp 30 Ml Udc) 30 ml PO Q6H PRN PRN Reason: Dyspepsia Stop: 05/01/23 17:02 Atorvastatin Calcium (Atorvastatin 40 Mg Tab) 40 mg PO QPM [facility] Stop: 05/01/23 20:59 Last Admin: 04/02/23 20:47 Dose: 40 mg Bisacodyl (Bisacodyl 10 Mg Supp) 10 mg [place] DAILY PRN PRN Reason: Constipation Stop: 05/01/23 17:02 Diphenhydramine HCl (Diphenhydramine Capsule 25 Mg Cap) 25 mg PO Q6H PRN PRN Reason: Allergic Rhinitis/Insomnia Stop: 05/01/23 17:02 Enoxaparin Sodium (Enoxaparin Inj 120 Mg/0.8 Ml Syr) 111 mg SQ Q12H [facility] Stop: 05/02/23 13:14 Last Admin: 04/03/23 00:20 Dose: 111 mg Famotidine (Famotidine 20 Mg Tab) 20 mg PO Q12H PRN PRN Reason: Dyspepsia Stop: 05/01/23 17:02 Gabapentin (Gabapentin 300 Mg Cap) 300 mg PO TID [facility]ALD Stop: 05/01/23 20:59 Last Admin: 04/02/23 20:48 Dose: 300 mg Hydromorphone HCl (Hydromorphone Inj 0.5 Mg/0.5 Ml Syr) 0.5 mg IV Q3H PRN PRN Reason: MODERATE Pain (Scale 4,5,6) & Pre PT Stop: 04/15/23 17:02 Hydromorphone HCl (Hydromorphone Inj 1 Mg/Ml Syringe) 1 mg IV Q3H PRN PRN Reason: SEVERE Pain (Scale 7,8,9,10) Stop: 04/15/23 17:02 Hydroxyzine HCl (Hydroxyzine Hcl 25 Mg Tab) 25 mg PO Q8H PRN PRN Reason: Anxiety Stop: 05/01/23 17:02 Promethazine HCl 12.5 mg/ (Sodium Chloride) 50.5 mls @ 202 mls/hr IV Q6H PRN PRN Reason: Nausea &/or Vomiting Stop: 05/01/23 17:02 Lorazepam 0.5 mg/ Syringe 0.5 mls @ 2 mls/min IV Q8H PRN; Protocol PRN Reason: Sedation/Anxiety Stop: 05/01/23 17:02 Dexamethasone 6 mg/ Syringe 1.5 mls @ 1 mls/min IV DAILY GERALD Stop: 04/04/23 09:02 Last Admin: 04/02/23 07:39 Dose: 1 mls/min Influenza Virus Vaccine Quadrival (Do Not Administer Flu Vaccine) 1 each N/A PRN PRN PRN Reason: Notification Stop: 05/01/23 17:02 Lorazepam (Lorazepam 0.5 Mg Tab) 0.5 mg PO Q8H PRN PRN Reason: Sedation/Anxiety Stop: 05/01/23 17:02 Magnesium Hydroxide (Magnesium Hydroxide Susp 30 Ml Udc) 30 ml PO Q24H PRN PRN Reason: Constipation Stop: 05/01/23 17:02 Metoclopramide HCl (Metoclopramide Hcl Inj 5 Mg/Ml 2 Ml Vial) 10 mg IV Q6H PRN PRN Reason: Nausea &/or Vomiting Stop: 05/01/23 17:02 Naloxone HCl (Naloxone Hcl 0.4 Mg/1 Ml Vial/Carp) 0.1 mg IV Q5M PRN PRN Reason: Oversedation/Resp depression Stop: 05/01/23 17:02 Ondansetron HCl (Ondansetron Inj 2 Mg/Ml 2 Ml Vial) 4 mg IV Q6H PRN PRN Reason: Nausea &/or Vomiting Stop: 05/01/23 17:02 Ondansetron HCl (Ondansetron 4 Mg Od Tab) 4 mg PO Q6H PRN PRN Reason: Nausea Stop: 05/01/23 17:02 Pneumococcal Polyvalent Vaccine (Do Not Administer Pneumococcal Vaccine) 1 each N/A PRN PRN PRN Reason: Notification Stop: 05/01/23 17:02 Polyethylene Glycol (Polyethylene (Miralax) 17 Gm Pack) 17 gm PO Q6 [facility] Stop: 05/02/23 05:59 Last Admin: 04/03/23 05:08 Dose: 17 gm Senna/Docusate Sodium (Docusate Sodium/Senna 50/8.6mg Tab) 2 tab PO HS [facility]ALD Stop: 05/01/23 20:59 Last Admin: 04/02/23 20:47 Dose: 2 tab Sodium Biphosphate/Sodium Phosphate (Sod Phosphate/Sod Biphosphate Enema 132 Ml Btl) 132 ml [place] ONE PRN PRN Reason: Constipation Stop: 05/01/23 17:02 Warfarin Sodium (Warfarin Sod 10 Mg Tab) 10 mg PO DAILY@1600 [facility] Stop: 05/02/23 15:59 Last Admin: 04/02/23 16:16 Dose: 10 mg
[2023-04-03] MEDS: GABAPENTIN 300 MG CAP PO SCH ×3 (07:54→20:47)
[2023-04-03] MEDS: dexAMETHasone 6 MG in SYRINGE 0 ML IV SCH (07:54)
[2023-04-03 08:30] LABS: Hematocrit (blood only) 34.4 % (42.0-52.0); Hemoglobin 12.2 g/dl (14.0-18.0); Mean Corpuscular Hgb Conc 35.5 g/dL (32.0-36.0); Mean Corpuscular Volume 87.5 fL (80.0-100.0); Platelet Count 169 K/uL (130-400); RDW Coefficient of Variation 13.2 % (11.5-14.5); Red Blood Count 3.93 M/uL (4.70-6.10)
[2023-04-03 08:49] LABS: BUN Creatinine Ratio 11.5 (10-20); Calcium 8.1 mg/dl (8.6-10.3); Creatinine Clr Calc Pharmacy 122.5 ml/min; Est GFR (African American) 113.7 ml/min; Est GFR (Non-African American) 98.1 ml/min; Magnesium 1.9 mg/dl (1.7-2.4); Potassium 3.3 mmol/L (3.5-5.1)
[2023-04-03] MEDS ORDERED: POTASSIUM CHLORIDE CRTAB 20 MEQ TABCR PO STA (10:07)
--- NOTE | 2023-04-03 10:54 | Orthopedic Progress Note ---
Date of Service April 03, 2023 Assessment & Plan (1) Neurogenic claudication due to lumbar spinal stenosis: Plan: At this time we will continue physical therapy monitor his JOY output. Patient is anxious to return home and this may be possible tomorrow depending on his JOY output. Admission and Anticipated Discharge Date Admission Date: April 01, 2023 Subjective Back pain is controlled leg pain markedly improved Physical Exam Physical Exam: Patient is in the chair at the bedside. He is comfortable. Skin strength testing right lower extremity. Results & Data Vital Signs (Past 12 Hours) Vital Signs Temp Pulse Pulse Resp BP Pulse Ox O2 Del Method 04/03/23 08:00 Room Air 04/03/23 08:00 36.5 C 65 15 118/64 99 Room Air 04/03/23 04:16 36.7 C 102 H 18 123/75 100 Room Air 04/02/23 23:15 36.7 C 100 H 18 135/82 97 CPAP Queries Orthopedic Spine Obesity: Yes
[2023-04-03] MEDS: WARFARIN SOD 10 MG TAB PO SCH (15:50)
--- NOTE | 2023-04-03 17:37 | Electrocardiogram Report ---
Test Reason : Blood Pressure : / mmHG Vent. Rate : 103 BPM Atrial Rate : 103 BPM P-R Int : 164 ms QRS Dur : 094 ms QT Int : 370 ms P-R-T Axes : 065 027 024 degrees QTc Int : 484 ms Sinus tachycardia Nonspecific ST abnormality No previous ECGs available Confirmed by Gage Brumfield ([id number]) on 04/03/2023 5:36:54 PM Referred By: Royal Shaikh Confirmed By:Howie Brumfield
[2023-04-03] MEDS: ATORVASTATIN 40 MG TAB PO SCH (20:47)
[2023-04-03] MEDS: DOCUSATE SODIUM/SENNA 50/8.6MG TAB PO SCH (20:48)
[2023-04-04] MEDS: ENOXAPARIN INJ 120 MG/0.8 ML SYR SQ SCH ×3 (01:13→11:34)
[2023-04-04 06:30] LABS: Hematocrit (blood only) 32.1 % (42.0-52.0); Hemoglobin 11.2 g/dl (14.0-18.0); Mean Corpuscular Hemoglobin 30.9 pg (25.0-34.0); Mean Corpuscular Hgb Conc 34.9 g/dL (32.0-36.0); Mean Corpuscular Volume 88.4 fL (80.0-100.0); Mean Platelet Volume 10.6 fL (9.4-12.4); Platelet Count 160 K/uL (130-400); RDW Coefficient of Variation 13.1 % (11.5-14.5); RDW Standard Deviation 42.4 fL (36.4-46.3); Red Blood Count 3.63 M/uL (4.70-6.10); White Blood Count 9.97 K/ul (4.8-10.8)
[2023-04-04 06:34] LABS: BUN Creatinine Ratio 13.4 (10-20); Calcium 7.8 mg/dl (8.6-10.3); Creatinine Clr Calc Pharmacy 142.6 ml/min; Est GFR (Non-African American) 104.4 ml/min; Potassium 3.4 mmol/L (3.5-5.1)
[2023-04-04 06:44] LABS: INR 1.1 (0.9-1.1); Prothrombin Time 12.3 Seconds (9.0-12.0)
--- NOTE | 2023-04-04 08:48 | Discharge Summary ---
Date of Service April 04, 2023 Admission HPI Per Admitting Provider This is a 8-year-old male who presents with chronic persistent back and leg pain after failing course of nonoperative care is here for surgical invention. Principal Diagnosis Lumbar spinal stenosis with neurogenic claudication Discharge Data Allergies Allergy/AdvReac Type Severity Reaction Status Date / Time acetaminophen [From Percocet] AdvReac Severe chills, Verified 04/01/23 10:34 nausea codeine AdvReac Severe nausea,chil Verified 04/01/23 10:34 ls oxycodone [From Percocet] AdvReac Severe chills, Verified 04/01/23 10:34 nausea Consultations 04/01/23 17:03 Consult Hospitalist Routine Procedures Performed Operation Date: 04/01/23 11:25 Actual Procedures p L2-L5 Decompression and Fusion, Spinal Cord Monitoring(Not Applicable) - Royal Shaikh DO Ordered Studies 04/01/23 11:25 FL lumbar spine 2-3V Routine Hospital Course (1) Neurogenic claudication due to lumbar spinal stenosis: Patient went lumbar decompression fusion tolerated as well as taken orthopedic for postoperative. Postoperatively he was up and ambulating progressed appropriately JOY drain decreasing appropriately. Excellent strength testing. Pain well controlled. Subsidy discharged home. Discharge orders instructions found in chart for further review. Total Time Total Time Spent Total Time Spent (In Minutes): 20 minutes Discharge Plan Discharge Items Patient Disposition: Home - Self-Care Reason For Visit: Unspecified Thoracic, Thoracolumar and Lumbosacral Discharge Diagnosis: Lumbar spinal stenosis with neurogenic claudication Activity: As commented below Non-emergency contact: Primary Care Provider Call non-emergency contact if: you have any medication questions Follow-up/Referrals: Cari Crawford M.D. [Primary Care Provider] - Diet: Regular Addtl Attending Provider Instructions: ACTIVITY RECOMMENDATIONS: SELF CARE INSTRUCTIONS AFTER THORACIC/LUMBAR FUSIONS 1. You may walk to your tolerance. It is good exercise for your legs and back. Expect some back and intermittent leg aches and pains. 2. You may perform "counter-top" level activities (make a sandwich, fidencio with a project, etc.). 3. No bending or lifting of more than 10 pounds or back twisting of any nature (roll like a log when turning in bed). 4. You may ride in a car for 20-30 minutes at a time. No driving until after your first visit with your doctor. 5. Frequent changes of position and restricting sitting to 30 minutes at a time will help limit the amount of back spasms and stiffness you may experience. 6. You may discontinue the use of ambulatory aids (cane, crutches, etc.) once your strength and confidence allow. 7. You may labor standards director the shower and let water strike your incision when you arrive home at least once daily. Do not take a tub bath, sit in a hot tub or go into a swimming pool until after your first recheck in the office. SPECIAL CARE INSTRUCTIONS: VERY IMPORTANT TO READ AND REVIEW A. Your surgical incision has been closed with a cosmetic suture under the skin that will dissolve in about 6 weeks. In 14 days, you can use a pair of clean scissors and cut the suture that is left outside of the skin at the ends of your incision. 1. The small skin tapes can be removed 7 days after surgery if they have not fallen off by that point. 2. You may keep the wound open to air as much as possible to promote healing after post-op day number 5 unless told otherwise by your doctor. 3. If you think the wound looks like it is becoming infected (redness or worsening drainage) and/or you are experiencing fever, chill or worsening back pain and muscle spasms, contact the office so that we may evaluate you as soon as possible. B. Complications are uncommon, but please contact us if you have any signs or symptoms of: 1. wound infection (fever higher than 102.5 degrees F, redness, separation of wound, drainage, or increasing pain from the incision) 2. blood clots in legs (pain, swelling, redness and warmth in legs) 3. urinary tract infection (fever higher than 102.5 degrees F, burning upon urination or increased frequency of urination) 4. nerve problems (inability to walk on your toes or heels, numbness, loss of bowel or bladder control) 5. any other symptoms that concern you C. Please call the office at if you have any concerns or questions about your operation or recovery. D. No smoking! Smoking drastically decreases the chance of a solid fusion. E. Do not take any anti-inflammatory medications (Indocin, Advil, Motrin, Aspirin, Naprosyn, etc.) as these may inhibit the chance of a solid fusion. Tylenol is okay to take for pain. MANAGING PAIN AFTER SPINAL SURGERY 1. Narcotic medication is intended for short-term use and will be provided for surgical pain. Surgical pain usually lasts for a period of 4-6 weeks. Narcotic medication includes Percocet, Vicodin, Darvocet, Tylenol #3 or Lortab. 2. Longer-term pain is more appropriately treated with non-narcotic medication such as Tylenol ES. 3. Muscle spasm is not appropriately treated with narcotics. Muscle relaxers such as Soma, Flexeril or Skelaxin can be used along with Tylenol ES. 4. Remember that we all live with some "aches and pains". This is not unusual or uncommon after an injury or as we get older. a. Back pain is expected and may include muscle spasms for 4 to 6 weeks after surgery. The pain should gradually improve. If the pain worsens for no apparent reason, please contact the office. b. Intermittent leg pain may also be experienced and should not be concerned about unless it worsens for no apparent reason. If so, please contact the office. 5. We will provide appropriate medication within the normal guidelines of their prescribed use. We will also be very cautious and aware of potential abuse and extended duration of patients' medication needs. a. Pain medications are for your comfort and to assist with sleep and rest so that the tissue can heal. They are not provided in order to return to normal activity and should not be used through the day. To do so or worsening pain at night can result from ongoing tissue damage and development of tolerance to the prescribed medicine. 6. Please allow 2-3 days to process refills. Prescriptions will not be mailed but must be picked up at the office. FOLLOW UP VISIT: Keep your scheduled follow-up appointment. Any questions, please call the office at . Pending Studies at Discharge: No Stand-Alone Forms: My Exegy, Smoking Cessation Medications and CT Order Prescriptions: New hydrocodone-acetaminophen 5-325 mg tablet 1 tab PO Q6H PRN (Reason: pain) Qty: 30 0RF tramadol 50 mg tablet 50 mg PO Q6H PRN (Reason: pain, moderate) Qty: 30 0RF Continued warfarin [Coumadin] 10 mg tablet 10 mg PO QPM Patient Comments: 10 mg 4 times a week atorvastatin 40 mg tablet 40 mg PO QPM cyclobenzaprine 10 mg Tablet 10 mg PO HS hydrocodone-acetaminophen 5-325 mg Tablet 1 tab PO HS PRN (Reason: Pain) gabapentin 300 mg Capsule 300 mg PO TID potassium 0 tab PO QPM Patient Comments: patient unsure of dose Discharge Orders: Discharge Order (Routine); Ordered 04/04/23 Ordered By: Royal Shaikh Admission Data Admit Date/Time: 04/01/23 14:26 Attending Provider: Royal Shaikh Admit Provider: Royal Shaikh Primary Care Provider: Cari Crawford Other Providers: Christina Suero
[2023-04-04] MEDS: dexAMETHasone 6 MG in SYRINGE 0 ML IV SCH (09:00)
[2023-04-04] MEDS: GABAPENTIN 300 MG CAP PO SCH (09:01)
== END 2023-04-04 12:07 | disposition home or self-care (01) | DRG 454 ==
LOC: EDSEX → ASU 10:13 → 3N 14:26

== ENCOUNTER 2024-05-02 08:18 | Inpatient (IN) ==
--- NOTE | 2024-03-25 15:17 | PAT Medication Instructions ---
Medication Instructions Date of Service March 25, 2024 Home Medications atorvastatin 40 mg tablet 40 mg PO QPM warfarin 10 mg tablet (Coumadin) 10 mg PO QPM MEDICATION INSTRUCTIONS: ASK your prescriber and surgeon warfarin 10 mg tablet (Coumadin) 10 mg PO QPM Take evening before surgery atorvastatin 40 mg tablet 40 mg PO QPM Other Notes Remember: NOTHING TO EAT OR DRINK AFTER MIDNIGHT If you have any questions please call us at [phone] or [phone] or [phone] or [phone]
--- NOTE | 2024-04-07 15:48 | Anesthesiology Consultation ---
Date of Service April 07, 2024 Assessment & Plan (1) Encounter for pre-operative examination: - Check coags DOS (warfarin instructions per surgeon/prescriber) - Infectious disease screening: Per assessment on 04/07/24- No known recent infectious disease contacts or current infectious disease symptoms. - Cardiology visit (03/30/24): "Patient with mechanical aortic valve, mild CAD, no active cardiac symptoms, presented for preoperative evaluation before back surgery. Patient has intermediate risk for preoperative cardiac complications for back surgery. I will proceed with surgery, benefits outweight the risks. No further cardiac workup is recommended. Will bridge with Lovenox because the patient had a history of stroke. Hold Coumadin for 4 days prior to surgery." - Patient acceptable risk for surgery pending surgeon-ordered PCP preop evaluation (Dr. Cari Siegel, appt 04/08). Chart Review Chart Review: Patient seen in Pre Admission Testing Teaching & Discussion Pre-Anesthesia Teaching/Discussion Notes: Instructed NPO after midnight before surgery,except medications with 15 cc of water. Medication instructions provided according to the PAT guidelines. History Surgery Operation Date: 05/02/24 07:45 Proposed Procedures p L2-L3 Decompression and Fusion, L3-L5 Hardware Removal, Spinal Cord Monitoring - Royal Shaikh, DO Height/Weight Height: 5 ft 8 in Weight: 118.9 kg Allergies Allergy/AdvReac Type Severity Reaction Status Date / Time acetaminophen [From Percocet] AdvReac Severe chills, Verified 03/25/24 14:30 nausea codeine AdvReac Severe nausea,chil Verified 03/25/24 14:30 ls oxycodone [From Percocet] AdvReac Severe chills, Verified 03/25/24 14:30 nausea Medications Home Medications Medication Instructions Recorded Confirmed Last Taken atorvastatin 40 mg tablet 40 mg PO QPM 01/21/19 03/25/24 03/31/23 21:00 warfarin 10 mg tablet (Coumadin) 10 mg PO QPM 01/21/19 03/25/24 03/27/23 21:00 Past Medical History Medical History CAD (coronary artery disease) Cardiac cath 05/2022: mild non-obstructive disease per cardio CVA (cerebral vascular accident) 2005, No deficits GERD (gastroesophageal reflux disease) occasional Mechanical heart valve present AVR (2005) Follows with Dr. Huff Neurogenic claudication due to lumbar spinal stenosis Obesity Sleep apnea CPAP (compliant) Spinal stenosis of cervical region Moderate to severe at C5-6 with chronic neck pain Exercise / Class Metabolic Activity II 4-5 Yardwork/Stairs/Walk up hill (one FS: No CP, no SOB) Past Surgical History Surgical History History of cardiac cath 05/2022- no stents History of lumbar fusion L2-S1 decompression/fusion: GA at [facility] (04/01/23) History of open reduction and internal fixation (ORIF) procedure left hip History of tonsillectomy Hx of colonoscopy Hx of elbow surgery left S/P heart valve replacement with mechanical valve aortic 2005 [facility] Past Anesthesia History No Hx of Anesthesia Complications and No Family Hx of Anesthesia Complications History of PONV No Hx of PONV and Hx of Motion Sickness Social History Smoking Status: Never smoker Do You Dip or Chew Tobacco: No Hx Alcohol Use: Yes Alcohol type: beer alcohol intake frequency: holidays/special occasions only Hx Substance Use: No substance use type: does not use Review of Systems Patient denies chest pain, shortness of breath, dyspnea on exertion, fever, chills, cough, wheezing, palpitations. Physical Exam Vital Signs BP 162/94 P 83 TEMP 98.7 SP02 96%RA RESP 16 Physical Full cervical extension range of motion. Full TMJ range of motion. TMD > 3.5 finger breaths (difficult to palpate) Mallampati Score III Dentition: intact Lungs: clear throughout to auscultation Cardiac: regular rate and rhythm, no murmurs noted Spine: normal Carotid arteries: negative bruit Extremities: no LE edema Short, thick neck Lab Results Anesthesia Preop Results Results Anesthesia Widget: WBC 7.24 K/ul (4.8-10.8) 04/07/24 Hgb 15.1 g/dl (14.0-18.0) 04/07/24 Hct 44.7 % (42.0-52.0) 04/07/24 Plt 191 K/uL (130-400) 04/07/24 Na 139 mmol/L (136-145) 04/07/24 K 4.1 mmol/L (3.5-5.1) 04/07/24 Cl 105 mmol/L (98-107) 04/07/24 CO2 28 mmol/L (21-32) 04/07/24 BUN 14 mg/dl (6-23) 04/07/24 Creat 1.00 mg/dl (0.6-1.4) 04/07/24 Glucose Level 95 mg/dl (70-99(Fasting)) 04/07/24 PT 27.5 Seconds (9.0-12.0) H 04/07/24 PTT 37 Seconds (21-31) H 04/07/24 INR 2.8 (0.9-1.1) H 04/07/24 Urine Color Yellow 04/07/24 Urine Appearance Clear (Clear) 04/07/24 Urine pH 8.0 (4.5-7.5) H 04/07/24 Urine Specific [place] 1.015 (1.000-1.030) 04/07/24 Urine Protein Negative (Negative) 04/07/24 Urine Glucose (UA) Negative (Negative) 04/07/24 Urine Ketones Negative (Negative) 04/07/24 Urine Blood Negative (Negative) 04/07/24 Urine Nitrite Negative (Negative) 04/07/24 Urine Bilirubin Negative (Negative) 04/07/24 Urine Urobilinogen Negative (Negative) 04/07/24 Urine Leukocyte Esterase 1+ (Negative) H 04/07/24 Urine WBC (Auto) 21-50 /hpf (0-5) H 04/07/24 Urine RBC (Auto) 3-5 /hpf (0-2) H 04/07/24 Urine Hyaline Casts (Auto) 0-2 /lpf (0-2) 04/07/24 Urine Epithelial Cells (Auto) 0-2 /hpf (0-2) 04/07/24 Urine Bacteria (Auto) None Seen (None Seen) 04/07/24 Blood Type O Positive 04/07/24 Antibody Screen NEGATIVE 04/07/24 Testing Laboratory Results Urine culture (04/07/24): Probable skin sharath Electrocardiogram Date: 03/30/24 71bpm. SR. Anterior infarct. Chest X-Ray Date: 04/07/24 Findings: There are no confluent pulmonary infiltrates. The heart size is within normal limits. No pleural effusion or pneumothorax is seen. There is no definite pulmonary nodule. No fracture is noted. Sternal wires are present Impression: No active disease Echocardiogram Date: 03/21/22 EF 55-60% Mechanical aortic prosthetic valve. No aortic insufficiency. Borderline pulmonary HTN Stress Test Date: 04/25/22 Based on EKG criteria, the test is negative. Based on nuclear imaging findings, there is inferior wall ischemia. Subsequent cardiac cath performed. Cardiac Catheterization Date: 05/15/22 Cardiac cath diagram received noting no greater than 40% stenosis throughout coronary arteries, subsequent cardiology note/clearance: "mild non-obstructive disease" - Medically managed. Attempts to obtain more detailed cardiac cath report unsuccessful with multiple attempts.
[~2024-05-02 08:18] MED LIST changes: +ALLERGY Noted to ORDERED Medication SCH; +ATROPINE SULFATE 0.1 MG/ML 10ML SYR IV PRN; -CeleBREX 200 MG CAP PO SCH; -GABAPENTIN 600 MG DOSE PO SCH; +HYDROmorphone INJ 1 MG/ML SYRINGE IV PRN; -LR 15ML/HR IV SCH; -LR 60ML/HR IV SCH; +ONDANSETRON INJ 2 MG/ML 2 ML VIAL IV PRN; -ceFAZolin 2000MG 2,000 MG/15 ML SYR IV SCH; +ePHEDrine sulfate 50 MG/ML AMP IV PRN
[2024-05-02] MEDS ORDERED: Nursing to Pharmacy Communication SCH (09:00)
[2024-05-02] MEDS: LR 60ML/HR IV SCH (09:16)
[2024-05-02 09:20] LABS: INR 1.1 (0.9-1.1); Partial Thromboplastin Time 28 Seconds (21-31); Prothrombin Time 11.4 Seconds (9.0-12.0)
[2024-05-02] MEDS: LR 15ML/HR IV SCH (09:20)
[2024-05-02] MEDS ORDERED: PROPOFOL IV EMULSION 10 MG/ML 20 ML VIAL IV ONE ×3 (09:21→11:56)
[2024-05-02] MEDS ORDERED: LIDOCAINE 2% 2 ML VIAL/AMP(20MG/ML) INFIL ONE (09:21)
[2024-05-02] MEDS ORDERED: DEXAMETHASONE SOD INJ 4 MG/ML VIAL ONE (09:21)
[2024-05-02] MEDS ORDERED: ONDANSETRON INJ 2 MG/ML 2 ML VIAL ONE (09:21)
[2024-05-02] MEDS ORDERED: PHENYLEPHRINE HCL 10 MG/ML VIAL ONE (09:21)
[2024-05-02] MEDS ORDERED: ROCURONIUM BROMIDE 10 MG/ML 5 ML VIAL IV ONE (09:21)
[2024-05-02] MEDS ORDERED: fentaNYL citrate PF 100 MCG/2 ML VIAL ONE (09:22)
[2024-05-02] MEDS ORDERED: MIDAZOLAM HCL 1 MG/ML 2ML VIAL ONE (09:22)
[2024-05-02] MEDS: CeleBREX 200 MG CAP PO SCH (09:29)
[2024-05-02] MEDS: GABAPENTIN 600 MG DOSE PO SCH (09:30)
[2024-05-02] MEDS: ACETAMINOPHEN 500 MG TAB PO SCH (09:30)
--- NOTE | 2024-05-02 10:12 | History & Physical Bridge Note ---
Date of Service May 02, 2024 History & Physical Bridge Note I have examined the patient, reviewed the History & Physical and in the interval since the performance of the History & Physical I have noted the following changes of clinical significance: no changes noted
--- NOTE | 2024-05-02 10:13 | History & Physical Report ---
Date of Service May 02, 2024 Assessment & Plan (1) Lumbosacral spondylosis with radiculopathy: Plan: L2-L3 decompression fusion hardware removal L3-L5 History of Present Illness Chief Complaint: Back and leg pain Primary Care Provider: Cari Crawford This is a 63-year-old male who presents with chronic persistent back and leg pain and failing course of nonoperative care is here for surgical invention. Allergies Allergy/AdvReac Type Severity Reaction Status Date / Time codeine AdvReac Severe nausea,chil Verified 05/02/24 08:54 ls oxycodone [From Percocet] AdvReac Severe chills, Verified 05/02/24 08:54 nausea Home Medications Medication Instructions Recorded Confirmed Type atorvastatin 40 mg tablet 40 mg PO QPM 01/21/19 05/02/24 History warfarin 10 mg tablet (Coumadin) 10 mg PO QPM 01/21/19 05/02/24 History enoxaparin 100 mg/mL subcutaneous 100 mg subcut BID 05/02/24 05/02/24 History syringe (Lovenox) Past Med/Surg History Problem List (Updated 05/02/24 @ 10:13 by Royal Shaikh DO) Lumbosacral spondylosis with radiculopathy Encounter for pre-operative examination Medical History CAD (coronary artery disease) Cardiac cath 05/2022: mild non-obstructive disease per cardio CVA (cerebral vascular accident) 2005, No deficits GERD (gastroesophageal reflux disease) occasional Mechanical heart valve present AVR (2005) Follows with Dr. Huff Neurogenic claudication due to lumbar spinal stenosis Obesity Sleep apnea CPAP (compliant) Spinal stenosis of cervical region Moderate to severe at C5-6 with chronic neck pain Surgical History History of cardiac cath 05/2022- no stents History of lumbar fusion L2-S1 decompression/fusion: GA at [facility] (04/01/23) History of open reduction and internal fixation (ORIF) procedure left hip History of tonsillectomy Hx of colonoscopy Hx of elbow surgery left S/P heart valve replacement with mechanical valve aortic 2005 [facility] Social History Smoking Status: Never smoker Second Hand Exposure: No; Do You Dip or Chew Tobacco: No; Tobacco Cessation Education Requested by Patient: No Hx Alcohol Use: Yes Alcohol type: beer Hx Substance Use: No Preferred Language: [place] Communication Ability: Effective Visual Impairment: No Limitations Hearing Ability: Normal Propagator Laborer Required: No Beliefs That Will Affect Care: None marital status: Current Living Situation: Spouse current occupational status: employed current occupation: construction helper Other Information That Helps Us Care for You: No Feels Safe at Home: Yes Safety Concerns: Feels Safe At This Time Assistive Devices: Contacts, CPAP and Glasses Physical Exam Physical Exam: Patient is alert and oriented heart regular rhythm Lungs clear Results & Data Results & Data Vital Signs (Past 12 Hours) Vital Signs Temp Pulse Resp BP Pulse Ox O2 Del Method 05/02/24 08:57 37.1 C 87 20 167/71 H 97 Room Air
[2024-05-02] MEDS: ceFAZolin 2000MG 2,000 MG/15 ML SYR IV SCH ×2 (10:50→18:15)
[2024-05-02] MEDS: ceFAZolin 330 MG/ML 1 GM VIAL ONE (11:34)
[2024-05-02] MEDS: BUPIVACAINE/EPINEPHRINE 0.25% 1:200,000 30 ML VIAL ONE (11:34)
[2024-05-02] MEDS ORDERED: SUGAMMADEX SODIUM 200 MG/2 ML VIAL IV ONE (12:19)
[2024-05-02] MEDS: FLOSEAL HEMOSTATIC MATRIX 10ML TOP ONE (12:23)
[2024-05-02] MEDS ORDERED: HYDROmorphone INJ 2 MG/ML SYR/VIAL ONE (12:29)
--- NOTE | 2024-05-02 12:45 | Operative Report ---
Post Operative Report Pre & Post Diagnosis Operation Date: 05/02/24 10:05 Pre-Op Diagnosis: Lumbosacral spondylosis with radiculopathy Post-Op Diagnosis: Lumbosacral spondylosis with radiculopathy I identified the patient and participated in the time-out.: Yes Procedure Operation Date: 05/02/24 10:05 Actual Procedures #1 removal of posterior instrumentation L3-L5. #2 exploration of fusion L3 L5. #3 lumbar decompression with bilateral medial facetectomies and foraminotomies L1-L2 L2-L3. #4 posterior spinal fusion L2-L3. #5 placement of posterior in strumentation L2-L5. #6 interbody fusion L2-L3. #7 placement of Spira 13 x 26 mm at L2-L3. #8 placement locally harvested morselized autograft posterior gutters. #9 placement infuse collagen sponge, with Koros in the posterior lateral gutters and os design interbody space. #10 application of versa wrap over the exposed dura. Surgeon Royal Shaikh, DO Shipboard Intelligence Analyst None Estimated Blood Loss 500 Findings See Below The patient is 5 foot 8 weighing over 115 kg and a BMI in excess of 38. Patient's body habitus did contribute to significant technical difficulty with positioning exposure and the procedure itself. This adds at least 50% increased operative time. Specimens None Indications This is a 63-year-old male presents publish diagnosis of failed course of nonoperative care is here for surgical invention. Description of Procedure Patient was met with identified informed consent obtained. Patient was then taken to the operative suite underwent intubation placed in a prone position the Yvon table on top of the Jose frame. All bony promises well-padded eyes inspected to ensure no external pressure placed upon them. This point the lumbar spine was prepped and draped in normal sterile fashion. Sharp dissection with the assistance of Bovie cautery from down to and exposing the lamina transverse processes of L2 and instrumentation at L3-L4-L5 bilaterally. I then proceeded to move the hardware bilaterally explored the fusion mass noting it to be mature and intact. Then performed a complete laminectomy of L2 with bilateral medial facetectomies and foraminotomies addressing severe spinal stenosis followed by partial laminectomy of L1 with bilateral medial facetectomies to address all subarticular stenosis. Pedicle screws were then placed in L2-L3 L5 bilaterally with assistance of fluoroscopy in the process dionicio placed. By way of transforaminal approach on the right a complete discectomy of L2-L3 was performed endplates corrected to subcortical bleeding bone and the 13 x 26 mm Spira cage filled with os designed tapped in position. The rods were then compressed locked into final position bilaterally. The transverse processes of L2 and L3 burred to subcortical bleeding bone. Infuse collagen sponge, with Koros and local autograft placed in posterior lateral gutters. Versa wrap placed over the exposed dura. 15 round JOY drain inserted. The incision was then closed with 1 Vicryl the fascia 2-0 Vicryl subcutaneously and 4 Monocryl for final skin closure. Steri-Strips sterile dressing placed. Patient waken taken to PACU stable condition. Please note spinal cord monitoring was utilized out the procedure no changes noted. Im ordering 20 grams of Triple [place] Collagen Powder (AMEE [id number]) to treat an incision wound that was caused by a spine procedure. The incision is approximately 2 cm(W) x 4 cm(L) into the joint (D) in size and is a full thickness wound. Triple [place] collagen comes in 1 gram packets so 20 packets were ordered. Given the size of the wound, with light to moderate exudate I chose to order a 20 day supply. The patient will be provided instructions for proper application of the collagen wound kit. The patient will be asked to apply the collagen powder daily and then cover it with sterile dressings dispensed. Collagen was selected as I expect the collagen to attract monocytes and fibroblasts, act as a sacrificial substrate for MMPs, and ultimately proved a matrix for tissue and vessel growth. The collagen will act as a primary dressing in this scenario. It is medically necessary for proper healing of these wounds to improve bioavailability and contact with each wound surface, this is also to help prevent infection of wounds and promote healing ultimately leading to a better healing outcome and limit the risk of infection. I attest to the content of the Intraoperative Record and any orders documented therein. Any exceptions are noted below.
[2024-05-02] MEDS: fentaNYL citrate PF 100 MCG/2 ML VIAL IV PRN (13:08)
--- NOTE | 2024-05-02 13:28 | Fluoroscopy Report ---
FL lumbar spine 2-3V CLINICAL HISTORY: L2-L3 DECOMPRESSION AND FUSION COMPARISON STUDY: Lumbar spine fluoroscopic images April 01, 2023. FLUOROSCOPY TIME: 17 seconds. Viktoria,r: 15.16 mGy FLUOROSCOPIC IMAGES: 2 FINDINGS: Fluoroscopy was provided during hardware removal and interval L2-L3 discectomy with interbo dy spacer placement. Posterior decompression is noted. There are bilateral pedicle screws at the L2, L3 and L5 levels with interconnecting rods. IMPRESSION: Fluoroscopy provided during hardware removal and revision surgery with interval L2-L3 di scectomy and fusion. ACT 112: Negative or not required by law. Electronically signed by: Micah Castañeda M.D. 05/02/2024 1:27 PM
--- NOTE | 2024-05-02 14:07 | Anesthesiology Progress Note ---
Date of Service May 02, 2024 Anesthesia Post Procedure Vital Signs Vital Signs: Temp Pulse Pulse Resp BP Pulse Ox O2 Del Method 05/02/24 14:00 97.7 F 71 15 109/81 97 Nasal Cannula 05/02/24 13:50 80 13 108/63 98 Nasal Cannula 05/02/24 13:40 80 13 115/69 98 Nasal Cannula 05/02/24 13:30 82 13 137/82 95 Nasal Cannula 05/02/24 13:20 74 15 131/77 98 Oxymask 05/02/24 13:10 74 15 144/79 H 98 Oxymask 05/02/24 13:00 86 17 151/82 H 100 Oxymask 05/02/24 12:54 96.8 F L 81 17 143/90 H 97 Oxymask 05/02/24 08:57 98.8 F 87 20 167/71 H 97 Room Air O2 Flow Rate 05/02/24 14:00 4 05/02/24 13:50 4 05/02/24 13:40 4 05/02/24 13:30 4 05/02/24 13:20 5 05/02/24 13:10 5 05/02/24 13:00 5 05/02/24 12:54 5 05/02/24 08:57 Pain Intensity Bilateral Lower Back: Pain Intensity: 7 Transfer of Care Handoff Completed per policy Notes Mental Status: alert / awake / arousable and participated in evaluation Patient Amnestic to Procedure: Yes Nausea / Vomiting: adequately controlled Pain: adequately controlled Airway Patency, RR, SpO2: stable & adequate BP & HR: stable & adequate Hydration State: stable & adequate Anesthetic Complications: no major complications apparent and Pt Satisfied with anesthetic care
[2024-05-02] MEDS ORDERED: HYDROmorphone INJ 0.5 MG/0.5 ML SYR IV PRN (14:59)
[2024-05-02] MEDS ORDERED: ALUMINUM/MAGNESIUM SUSP 30 ML UDC PO PRN (14:59)
[2024-05-02] MEDS ORDERED: ONDANSETRON INJ 2 MG/ML 2 ML VIAL IV PRN (14:59)
[2024-05-02] MEDS ORDERED: SOD PHOSPHATE/SOD BIPHOSPHATE ENEMA 132 ML BTL PR PRN (14:59)
[2024-05-02] MEDS ORDERED: LORazepam 2 MG/1 ML VIAL IV PRN (14:59)
[2024-05-02] MEDS ORDERED: NALOXONE HCL 0.4 MG/1 ML VIAL/CARP IV PRN (14:59)
[2024-05-02] MEDS ORDERED: diphenhydrAMINE Capsule 25 MG CAP PO PRN (14:59)
[2024-05-02] MEDS ORDERED: DO NOT ADMINISTER PNEUMOCOCCAL VACCINE PRN (14:59)
[2024-05-02] MEDS ORDERED: HYDROmorphone INJ 1 MG/ML SYRINGE IV PRN (14:59)
[2024-05-02] MEDS ORDERED: ONDANSETRON 4 MG OD TAB PO PRN (14:59)
[2024-05-02] MEDS ORDERED: MAGNESIUM HYDROXIDE SUSP 30 ML UDC PO PRN (14:59)
[2024-05-02] MEDS ORDERED: ACETAMINOPHEN 1,000 MG/100 ML VIAL IV PRN (14:59)
[2024-05-02] MEDS ORDERED: FAMOTIDINE 20 MG TAB PO PRN (14:59)
[2024-05-02] MEDS ORDERED: DO NOT ADMINISTER FLU VACCINE PRN (14:59)
[2024-05-02] MEDS ORDERED: bisacodyL 10 MG SUPP PR PRN (14:59)
[2024-05-02] MEDS ORDERED: LORazepam 0.5 MG TAB PO PRN (14:59)
[2024-05-02] MEDS ORDERED: hydrOXYzine HCl 25 MG TAB PO PRN (14:59)
[2024-05-02] MEDS ORDERED: METOCLOPRAMIDE HCL INJ 5 MG/ML 2 ML VIAL IV PRN (14:59)
[2024-05-02] MEDS ORDERED: PROMETHAZINE 12.5 MG/50.5 ML BAG IV PRN (14:59)
--- NOTE | 2024-05-02 15:38 | Hospitalist Consultation ---
Date of Consultation May 02, 2024 Assessment & Plan (1) Lumbosacral spondylosis with radiculopathy: This is a 63 y/o male with hx CAD, CVA, s/p AVR on chronic AC with warfarin, valvular heart disease, HTN, ROSALINDA on CPA, and lumbar spondylosis w/ radiculopathy who underwent L2-L3 decompression and fusion with removal of L3-L5 hardware today by Dr. Shaikh and for whom we have been consulted to assist with post- operative medical management. - Pain control, activity, wound care per primary team - Resume Lovenox bridge and warfarin as soon as okay with surgery - Daily INR ordered - CBC in the AM to monitor for post-op blood loss anemia (EBL = 500 cc) (2) Mechanical heart valve present: Hx mechanical AVR in 2005 with chronic anticoagulation on warfarin Warfarin has been held and patient was started on Lovenox bridge pre- operatively, held for surgery. Would resume as soon as okay with the primary team. (3) CVA (cerebral vascular accident): History of, no residual deficits Continue statin (4) Sleep apnea: Chronic, stable CPAP as per home settings - pt brought his own equipment. Plan Pt seen and reviewed with collaborating physician, Dr. Farris. Plan of care discussed and as outlined above. Thank you for this consultation. We will continue to follow this patient with you. A member of the [facility] team is available 24/11 via [employer]. Please don't hesitate to reach out with questions. Lucero Betancourt PA-C Supervising Physician Co-Signing Physician Notes Attending Addendum: Case reviewed with the advanced practitioner. I have personally performed a history and physical examination on the patient. I have reviewed the advanced practitioner's documentation on the date of service referenced in note, and I agree with, and take responsibility for the plan of care. please refer to her notes for full details patient seen and examined, records reviewed by myself as well ASSESSMENT AND PLAN> S/P L SPINE DECOMPRESSION FUSION stable over all after surgery MECHANICAL AORTIC VALVE usually on coumadin received anticoag directions from pay per click strategist in [place] had Lovenox bridge yesterday, on hold today per Dr. Shaikh possibly resume Lovenox bridge tomorrow when hemostasis stable per Dr. Shaikh ROSALINDA on CPAP HISTORY OF CVA on statin other diagnoses and plan of care as per advanced practitioner's notes Saeid Farris MD History of Present Illness Reason for Consultation: Post-operative medical management Requesting Physician: Dr. Royal Shaikh Attending Physician: Royal Shaikh, History of Present Illness This is a 63 y/o male with hx CAD, CVA, s/p AVR on chronic AC with warfarin, valvular heart disease, HTN, ROSALINDA on CPA, and lumbar spondylosis w/ radiculopathy who underwent L2-L3 decompression and fusion with removal of L3-L5 hardware today by Dr. Shaikh and for whom we have been consulted to assist with post- operative medical management. Pt follows with cardiology in [place] and was instructed to stop warfarin four days before the surgery and start bridging Lovenox 120 mg BID the third day before surgery with last dose 24 hours before surgery then restart bridging Lovenox post-op as soon as okay with the surgeon. Last dose of Lovenox was yesterday morning. Pt reports his current pain is 7- 8/10 and feels similar to pain before the surgery. He has a chronic foot drop which he typically uses a brace for and this is unchanged. Denies chest pain, dyspnea, nausea, vomiting. He uses CPAP for sleep apnea and brought his equ ipment with him. Allergies Allergy/AdvReac Type Severity Reaction Status Date / Time codeine AdvReac Severe nausea,chil Verified 05/02/24 08:54 ls oxycodone [From Percocet] AdvReac Severe chills, Verified 05/02/24 08:54 nausea Home Medications Medication Instructions Recorded Confirmed Type atorvastatin 40 mg tablet 40 mg PO QPM 01/21/19 05/02/24 History warfarin 10 mg tablet (Coumadin) 10 mg PO QPM 01/21/19 05/02/24 History enoxaparin 100 mg/mL subcutaneous 100 mg subcut BID 05/02/24 05/02/24 History syringe (Lovenox) Patient History Medical History CAD (coronary artery disease) Cardiac cath 05/2022: mild non-obstructive disease per cardio CVA (cerebral vascular accident) 2005, No deficits GERD (gastroesophageal reflux disease) occasional Mechanical heart valve present AVR (2005) Follows with Dr. Huff Neurogenic claudication due to lumbar spinal stenosis Obesity Sleep apnea CPAP (compliant) Spinal stenosis of cervical region Moderate to severe at C5-6 with chronic neck pain Surgical History History of cardiac cath 05/2022- no stents History of lumbar fusion L2-S1 decompression/fusion: [place] at [facility] (04/01/23) History of open reduction and internal fixation (ORIF) procedure left hip History of tonsillectomy Hx of colonoscopy Hx of elbow surgery left S/P heart valve replacement with mechanical valve aortic 2006 [facility] Social History Smoking Status: Never smoker Second Hand Exposure: No; Do You Dip or Chew Tobacco: No; Tobacco Cessation Education Requested by Patient: No Hx Alcohol Use: Yes Alcohol type: beer Hx Substance Use: No Preferred Language: Hong Konger Communication Ability: Effective Visual Impairment: No Limitations Hearing Ability: Normal Ladle Filler Required: No Beliefs That Will Affect Care: None marital status: Current Living Situation: Spouse current occupational status: employed current occupation: building construction inspector Other Information That Helps Us Care for You: No Feels Safe at Home: Yes Safety Concerns: Feels Safe At This Time Assistive Devices: Contacts, CPAP and Glasses Review of Systems Review of Systems: All systems reviewed & are unremarkable except as noted in Subjective Physical Exam Physical Exam: General: NAD, resting in bed but arouses to verbal stimulation HEENT: no scleral icterus Neck: supple, trachea midline Heart: RRR. +murmur Lungs: CTA bilaterally on the anterior Abdomen: soft, obese, NT, +BS Extremities:no pedal edema, left foot drop Neurologic: no confusion or dysarthria, moving all extremities Results & Data Results & Data Vital Signs (Past 12 Hours) Vital Signs Temp Pulse Pulse Resp BP Pulse Ox O2 Del Method 05/02/24 15:01 36.5 C 83 18 136/76 94 Room Air 05/02/24 14:40 71 15 144/66 H 97 Nasal Cannula 05/02/24 14:25 80 15 147/76 H 97 Nasal Cannula 05/02/24 14:10 75 15 144/68 H 97 Nasal Cannula 05/02/24 14:00 36.5 C 71 15 109/81 97 Nasal Cannula 05/02/24 13:50 80 13 108/63 98 Nasal Cannula 05/02/24 13:40 80 13 115/69 98 Nasal Cannula 05/02/24 13:30 82 13 137/82 95 Nasal Cannula 05/02/24 13:20 74 15 131/77 98 Oxymask 05/02/24 13:10 74 15 144/79 H 98 Oxymask 05/02/24 13:00 86 17 151/82 H 100 Oxymask 05/02/24 12:54 36.0 C L 81 17 143/90 H 97 Oxymask 05/02/24 08:57 37.1 C 87 20 167/71 H 97 Room Air O2 Flow Rate 05/02/24 15:01 05/02/24 14:40 4 05/02/24 14:25 4 05/02/24 14:10 4 05/02/24 14:00 4 05/02/24 13:50 4 05/02/24 13:40 4 05/02/24 13:30 4 05/02/24 13:20 5 05/02/24 13:10 5 05/02/24 13:00 5 05/02/24 12:54 5 05/02/24 08:57 Laboratory Results 05/02/24 08:38 PT 11.4 INR 1.1 APTT 28 PTT Ratio 1.0 Medications Administered Acetaminophen (Acetaminophen 500 Mg Tab) 1,000 mg PO PREOP GERALD Stop: 05/02/24 18:00 Last Admin: 05/02/24 09:30 Dose: 1,000 mg Documented By: MIKE Celecoxib (Celebrex 200 Mg Cap) 200 mg PO PREOP GERALD Stop: 05/02/24 18:00 Last Admin: 05/02/24 09:29 Dose: 200 mg Documented By: MIKE Gabapentin (Gabapentin 600 Mg Dose) 600 mg PO PREOP GERALD Stop: 05/02/24 18:00 Last Admin: 05/02/24 09:30 Dose: 600 mg Documented By: MIKE Lactated Ringer's (Lr) 1,000 mls @ 15 mls/hr IV .Q24H GERALD Stop: 05/03/24 05:59 Last Infusion: 05/02/24 10:30 Dose: Infused Documented By: Infusion: 05/02/24 09:20 Dose: 0 mls/hr Documented By: Admin: 05/02/24 09:20 Dose: 15 mls/hr Documented By: MIKE Lactated Ringer's (Lr) 1,000 mls @ 60 mls/hr IV .[id number] GERALD Stop: 05/02/24 22:39 Last Admin: 05/02/24 09:16 Dose: Not Given Documented By: MIKE Cefazolin Sodium (Ancef 2000mg) 2,000 mg in 15 mls @ 3.75 mls/min IV PREOP GERALD; Protocol Stop: 05/02/24 18:00 Last Admin: 05/02/24 10:50 Dose: 3.75 mls/min Documented By: [id number] Discontinued Medications Bupivacaine HCl/Epinephrine Bitart (Bupivacaine/Epinephrine 0.25% 1:200,000 30 Ml Vial) Confirm Administered Dose 30 ml .ROUTE .STK-MED ONE Stop: 05/02/24 10:14 Last Admin: 05/02/24 11:34 Dose: 25 ml Documented By: NAVIN Cefazolin Sodium (Cefazolin 330 Mg/Ml 1 Gm Vial) Confirm Administered Dose 990 mg .ROUTE .STK-MED ONE Stop: 05/02/24 10:14 Last Admin: 05/02/24 11:34 Dose: 990 mg Documented By: ERVIN Fentanyl Citrate (Fentanyl Citrate Pf 100 Mcg/2 Ml Vial) 25 mcg IV Q5M PRN PRN Reason: PACU Use Only-Pain Stop: 05/02/24 15:43 Last Admin: 05/02/24 13:23 Dose: 25 mcg Documented By: Admin: 05/02/24 13:18 Dose: 25 mcg Documented By: Admin: 05/02/24 13:13 Dose: 25 mcg Documented By: Admin: 05/02/24 13:08 Dose: 25 mcg Documented By: MIREYA Miscellaneous ( Floseal Hemostatic Matrix 10ml) 30 ml TOP ONCE ONE Stop: 05/02/24 11:26 Last Admin: 05/02/24 12:23 Dose: 33 ml Documented By: ERVIN (3) CVA (cerebral vascular accident) CVA mechanism: unspecified Qualified Code(s): I63.9 - Cerebral infarction, unspecified (4) Sleep apnea Sleep apnea type: obstructive Qualified Code(s): G47.33 - Obstructive sleep apnea (adult) (pediatric)
[2024-05-02] MEDS: traMADol HCL 50 MG TABLET PO PRN (19:53)
[2024-05-02] MEDS: ATORVASTATIN 40 MG TAB PO SCH (19:53)
[2024-05-02] MEDS: DOCUSATE SODIUM/SENNA 50/8.6MG TAB PO SCH (20:05)
[2024-05-03 05:50] LABS: Basophils # (auto) 0.01 K/uL (0.00-0.20); Basophils % (auto) 0.1 %; Hematocrit (blood only) 33.5 % (42.0-52.0); Hemoglobin 11.5 g/dl (14.0-18.0); Immature Granulocytes # (auto) 0.07 K/uL (0.01-0.20); Immature Granulocytes % (auto) 0.7 %; Lymphocytes # (auto) 1.16 K/uL (1.20-3.40); Lymphocytes % (auto) 10.9 %; Mean Corpuscular Hgb Conc 34.3 g/dL (32.0-36.0); Mean Corpuscular Volume 90.3 fL (80.0-100.0); Mean Platelet Volume 10.1 fL (9.4-12.4); Monocytes # (auto) 0.87 K/uL (0.11-0.59); Monocytes % (auto) 8.2 %; Neutrophils # (auto) 8.51 K/uL (1.40-6.50); Neutrophils % (auto) 80.1 %; Platelet Count 181 K/uL (130-400); RDW Standard Deviation 42.5 fL (36.4-46.3); Red Blood Count 3.71 M/uL (4.70-6.10); White Blood Count 10.62 K/ul (4.8-10.8)
[2024-05-03 06:04] LABS: BUN Creatinine Ratio 20.3 (10-20); Calcium 8.1 mg/dl (8.6-10.3); Potassium 3.9 mmol/L (3.5-5.1)
[2024-05-03 06:16] LABS: INR 1.1 (0.9-1.1); Prothrombin Time 11.4 Seconds (9.0-12.0)
[2024-05-03 07:44] VITALS: RESP 16
[2024-05-03] MEDS: POLYETHYLENE (MIRALAX) 17 GM PACK PO SCH (08:22)
[2024-05-03] MEDS: dexAMETHasone 6 MG in SYRINGE 0 ML IV SCH (08:25)
[2024-05-03] MEDS: HYDROCODONE/ACETAMOPHEN 5/325MG TAB PO PRN (08:36)
--- NOTE | 2024-05-03 09:55 | Orthopedic Progress Note ---
Date of Service May 03, 2024 Assessment & Plan (1) Lumbosacral spondylosis with radiculopathy: Plan: At this time we will continue physical therapy monitor JOY output. We will initiate Lovenox and Coumadin this evening. Will maintain his JOY drain. Admission and Anticipated Discharge Date Admission Date: May 02, 2024 Subjective Back pain is controlled leg symptoms improved. Patient is very concerned about his Lovenox and Coumadin dosing. He just started the office today okay he is just what what is the Physical Exam Physical Exam: Patient is in bed. Is comfortable. Discussed when to testing. Results & Data Vital Signs (Past 12 Hours) Vital Signs Temp Pulse Resp BP Pulse Ox O2 Del Method 05/03/24 07:43 36.4 C L 75 16 137/73 99 Room Air 05/03/24 03:00 36.5 C 75 14 134/81 96 Room Air 05/02/24 23:20 36.8 C 79 14 119/74 97 Room Air Queries Orthopedic Spine Acute Posthemorrhagic Anemia: Yes Obesity: Yes
--- NOTE | 2024-05-03 15:00 | Hospitalist Progress Note ---
Date of Service May 03, 2024 Assessment & Plan (1) Lumbosacral spondylosis with radiculopathy: Plan: Patient is a 63 yr male with hx CAD, CVA, s/p AVR on chronic AC with warfarin, valvular heart disease, HTN, ROSALINDA on CPA, and lumbar spondylosis w/ radiculopathy who underwent L2-L3 decompression and fusion with removal of L3-L5 hardware today by Dr. Shaikh and for whom we have been consulted to assist with post- operative medical management. Lumbosacral spondylosis with radiculopathy Postoperative acute blood loss anemia --S/P lumbar decompression, fusion surgery by Dr. Shaikh on 05/02/2024 - Pain control, activity, wound care per primary team -On Lovenox, Coumadin -Incentive spirometry Bowel regimen to prevent constipation PT OT when appropriate (2) Mechanical heart valve present: Plan: Hx mechanical AVR in 2005 with chronic anticoagulation on warfarin Start on therapeutics Lovenox bridge to Coumadin Monitor INR: 1.1 today Mild hyponatremia Monitor sodium levels (3) CVA (cerebral vascular accident): Plan: History of, no residual deficits Continue statin (4) Sleep apnea: Plan: Chronic, stable CPAP as per home settings - pt brought his own equipment. Plan DVT Px: Lovenox, Coumadin CODE STATUS Full code Admission and Anticipated Discharge Date Admission Date: May 02, 2024 Subjective Patient is seen and examined at bedside Back pain is controlled No bowel movement today Denies any chest pain, dyspnea, nausea, vomiting, bowel pain No other complaints today Sitting in chair during my encounter Review of Systems Review of Systems: All systems reviewed & are unremarkable except as noted in Subjective Physical Exam Physical Exam: Physical Exam: Vitals signs as noted above General Appearance:Morbidly Obese, no apparent distress Head: normocephalic, Atraumatic Eyes: normal inspection, EOMI Neck: supple, Trachea midline Respiratory/Chest: Normal breath sounds, CTA, No accessory muscle use Cardiovascular: mechanical heart sound, No murmur Abdomen/GI:Soft, Non tender, Bowel sounds present Back: Surgical site in dressing,+drain Extremities/Musculoskeletal:normal inspection, no edema, LLE foot drop Neurologic/Psych:AAOX3, grossly no focal neurological deficits Skin: normal color, warm Results & Data Results & Data Vital Signs (Past 12 Hours) Vital Signs Temp Pulse Resp BP Pulse Ox O2 Del Method 05/03/24 14:46 36.8 C 81 16 136/80 98 Room Air 05/03/24 13:16 36.7 C 80 16 131/75 99 Room Air 05/03/24 07:43 36.4 C L 75 16 137/73 99 Room Air 05/03/24 03:00 36.5 C 75 14 134/81 96 Room Air Laboratory Results Short CBC 05/03/24 Range/Units 05:27 WBC 10.62 (4.8-10.8) K/ul Hgb 11.5 L (14.0-18.0) g/dl Hct 33.5 L (42.0-52.0) % Plt Count 181 (130-400) K/uL BMP 05/03/24 05:27 Sodium 132 L Potassium 3.9 Chloride 101 Carbon Dioxide 26 BUN 14 Creatinine 0.69 Glucose 125 H Calcium 8.1 L (3) CVA (cerebral vascular accident) CVA mechanism: unspecified Qualified Code(s): I63.9 - Cerebral infarction, unspecified (4) Sleep apnea Sleep apnea type: obstructive Qualified Code(s): G47.33 - Obstructive sleep apnea (adult) (pediatric)
[2024-05-03] MEDS: WARFARIN SOD 10 MG TAB PO SCH (18:14)
[2024-05-03] MEDS: ENOXAPARIN INJ 120 MG/0.8 ML SYR SQ SCH (18:14)
[2024-05-03] MEDS: ACETAMINOPHEN 500 MG TAB PO PRN (20:08)
[2024-05-04 06:31] LABS: Hematocrit (blood only) 33.6 % (42.0-52.0); Hemoglobin 11.7 g/dl (14.0-18.0); Mean Corpuscular Hgb Conc 34.8 g/dL (32.0-36.0); Mean Corpuscular Volume 89.1 fL (80.0-100.0); Mean Platelet Volume 10.8 fL (9.4-12.4); Platelet Count 193 K/uL (130-400); RDW Coefficient of Variation 12.8 % (11.5-14.5); RDW Standard Deviation 41.4 fL (36.4-46.3); Red Blood Count 3.77 M/uL (4.70-6.10); White Blood Count 12.34 K/ul (4.8-10.8)
[2024-05-04 06:57] LABS: BUN Creatinine Ratio 17.9 (10-20); Calcium 8.5 mg/dl (8.6-10.3); Creatinine Clr Calc Pharmacy 122.9 ml/min; Magnesium 1.9 mg/dl (1.7-2.4); Potassium 3.6 mmol/L (3.5-5.1)
[2024-05-04 07:03] LABS: Prothrombin Time 10.9 Seconds (9.0-12.0)
[2024-05-04 07:33] VITALS: BP 143/83; PULSE 87; TEMP 98.4; O2SAT 99
--- NOTE | 2024-05-04 11:03 | Discharge Summary ---
Date of Service May 04, 2024 Admission HPI Per Admitting Provider This is a 63-year-old male who presents with chronic persistent back and leg pain and failing course of nonoperative care is here for surgical invention. Principal Diagnosis Spinal spondylosis with radiculopathy Discharge Data Allergies Allergy/AdvReac Type Severity Reaction Status Date / Time codeine AdvReac Severe nausea,chil Verified 05/02/24 08:54 ls oxycodone [From Percocet] AdvReac Severe chills, Verified 05/02/24 08:54 nausea Consultations 05/02/24 14:59 Consult Hospitalist Routine Procedures Performed Operation Date: 05/02/24 10:05 Actual Procedures p L2-L3 Decompression and Fusion, Spinal Cord Monitoring - Royal Shaikh DO s L3-L5 Hardware Removal, - Royal Shaikh DO Ordered Studies 05/02/24 10:05 FL lumbar spine 2-3V Routine Hospital Course (1) Lumbosacral spondylosis with radiculopathy: Patient underwent lumbar decompression fusion trial as well as taken orthopedic for postoperative. Postop he progressed appropriately. Leg pain improved. Subsidy discharged home. Patient discharged home with his drain. Will follow- up in our office Thursday for removal. Further details can be found in chart for further review. Total Time Total Time Spent Total Time Spent (In Minutes): 20 minutes Discharge Plan Discharge Items Patient Disposition: Home - Self-Care Reason For Visit: Lumbar Radiculopathy, Lumbar Region Spinal Stenosi Discharge Diagnosis: lumbar stenosis Activity: As commented below Non-emergency contact: Primary Care Provider Call non-emergency contact if: you have any medication questions Follow-up/Referrals: Cari Crawford M.D. [Primary Care Provider] - Diet: Regular Addtl Attending Provider Instructions: ACTIVITY RECOMMENDATIONS: SELF CARE INSTRUCTIONS AFTER THORACIC/LUMBAR FUSIONS 1. You may walk to your tolerance. It is good exercise for your legs and back. Expect some back and intermittent leg aches and pains. 2. You may perform "counter-top" level activities (make a sandwich, fidencio with a project, etc.). 3. No bending or lifting of more than 10 pounds or back twisting of any nature (roll like a log when turning in bed). 4. You may ride in a car for 20-30 minutes at a time. No driving until after your first visit with your doctor. 5. Frequent changes of position and restricting sitting to 30 minutes at a time will help limit the amount of back spasms and stiffness you may experience. 6. You may discontinue the use of ambulatory aids (cane, crutches, etc.) once your strength and confidence allow. 7. You may environmental compliance engineer the shower and let water strike your incision when you arrive home at least once daily. Do not take a tub bath, sit in a hot tub or go into a swimming pool until after your first recheck in the office. 8. You may resume previous diet. SPECIAL CARE INSTRUCTIONS: VERY IMPORTANT TO READ AND REVIEW A. Your surgical incision has been closed with a cosmetic suture under the skin that will dissolve in about 6 weeks. In 14 days, you can use a pair of clean scissors and cut the suture that is left outside of the skin at the ends of your incision. 1. The small skin tapes can be removed 7 days after surgery if they have not fallen off by that point. 2. You may keep the wound open to air as much as possible to promote healing after post-op day number 5 unless told otherwise by your doctor. 3. If you think the wound looks like it is becoming infected (redness or worsening drainage) and/or you are experiencing fever, chill or worsening back pain and muscle spasms, contact the office so that we may evaluate you as soon as possible. B. Complications are uncommon, but please contact us if you have any signs or symptoms of: 1. wound infection (fever higher than 102.5 degrees F, redness, separation of wound, drainage, or increasing pain from the incision) 2. blood clots in legs (pain, swelling, redness and warmth in legs) 3. urinary tract infection (fever higher than 102.5 degrees F, burning upon urination or increased frequency of urination) 4. nerve problems (inability to walk on your toes or heels, numbness, loss of bowel or bladder control) 5. any other symptoms that concern you C. Please call the office at if you have any concerns or questions about your operation or recovery. D. No smoking! Smoking drastically decreases the chance of a solid fusion. E. Do not take any anti-inflammatory medications (Indocin, Advil, Motrin, Aspirin, Naprosyn, etc.) as these may inhibit the chance of a solid fusion. Tylenol is okay to take for pain. MANAGING PAIN AFTER SPINAL SURGERY 1. Narcotic medication is intended for short-term use and will be provided for surgical pain. Surgical pain usually lasts for a period of 4-6 weeks. Narcotic medication includes Percocet, Vicodin, Darvocet, Tylenol #3 or Lortab. 2. Longer-term pain is more appropriately treated with non-narcotic medication such as Tylenol ES. 3. Muscle spasm is not appropriately treated with narcotics. Muscle relaxers such as Soma, Flexeril or Skelaxin can be used along with Tylenol ES. 4. Remember that we all live with some "aches and pains". This is not unusual or uncommon after an injury or as we get older. a. Back pain is expected and may include muscle spasms for 4 to 6 weeks after surgery. The pain should gradually improve. If the pain worsens for no apparent reason, please contact the office. b. Intermittent leg pain may also be experienced and should not be concerned about unless it worsens for no apparent reason. If so, please contact the office. 5. We will provide appropriate medication within the normal guidelines of their prescribed use. We will also be very cautious and aware of potential abuse and extended duration of patients' medication needs. a. Pain medications are for your comfort and to assist with sleep and rest so that the tissue can heal. They are not provided in order to return to normal activity and should not be used through the day. To do so or worsening pain at night can result from ongoing tissue damage and development of tolerance to the prescribed medicine. 6. Please allow 2-3 days to process refills. Prescriptions will not be mailed but must be picked up at the office. FOLLOW UP VISIT: Keep your scheduled follow-up appointment. Any questions, please call the office at . Pending Studies at Discharge: No Stand-Alone Forms: My anywayanyday, Smoking Cessation Medications and IN Order Prescriptions: New hydrocodone-acetaminophen 5-325 mg tablet 1 tab PO Q6H PRN (Reason: pain) Qty: 30 0RF tramadol 50 mg tablet 50 mg PO Q6H PRN (Reason: pain, moderate) Qty: 30 0RF Continued warfarin [Coumadin] 10 mg tablet 10 mg PO QPM atorvastatin 40 mg tablet 40 mg PO QPM enoxaparin [Lovenox] 100 mg/mL syringe 100 mg subcut BID Discharge Orders: Discharge Order (Routine); Ordered 05/04/24 Ordered By: Royal Shaikh Admission Data Admit Date/Time: 05/02/24 12:49 Attending Provider: Royal Shaikh Admit Provider: Royal Shaikh Primary Care Provider: Cari Crawford Other Providers: Saeid Farris
--- NOTE | 2024-05-04 11:27 | Hospitalist Progress Note ---
Date of Service May 04, 2024 Assessment & Plan (1) Lumbosacral spondylosis with radiculopathy: Plan: Status post surgery, defer postoperative recommendation to primary team. 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 Until INR gets therapeutic, patient should remain on Lovenox 120 mg twice daily upon discharge. (3) CVA (cerebral vascular accident): Plan: Continue with Lipitor. (4) Sleep apnea: Plan: Continue CPAP at night. Plan The only recommendation is for patient to get his Lovenox 120 mg twice daily prescribed upon discharge and Coumadin 10 mg daily until INR becomes therapeutic otherwise no objection for discharge. Admission and Anticipated Discharge Date Admission Date: May 02, 2024 Subjective Patient was seen briefly, I was told that he is being discharged by the primary team. Results & Data Results & Data Vital Signs (Past 12 Hours) Vital Signs Temp Pulse Resp BP Pulse Ox O2 Del Method 05/04/24 07:15 36.9 C 87 16 143/83 H 99 Room Air Laboratory Results Laboratory Results - last 24 hr 05/04/24 05:34 WBC 12.34 H RBC 3.77 L Hgb 11.7 L Hct 33.6 L MCV 89.1 MCH 31.0 MCHC 34.8 RDW Std Deviation 41.4 RDW Coeff of Fauzia 12.8 Plt Count 193 MPV 10.8 PT 10.9 INR 1.0 Sodium 138 Potassium 3.6 Chloride 102 Carbon Dioxide 30 Anion Gap 6 BUN 14 Creatinine 0.78 Est Cr Clr Drug Dosing 122.9 eGFR 101.46 BUN/Creatinine Ratio 17.9 Glucose 103 H Calcium 8.5 L Magnesium 1.9 Medications Administered Current Inpatient Medications Acetaminophen (Acetaminophen 500 Mg Tab) 1,000 mg PO Q8H PRN PRN Reason: MILD Pain Scale 1,2,3 & Pre PT Stop: 06/01/24 14:58 Last Admin: 05/04/24 04:34 Dose: 1,000 mg Hydrocodone Bitart/Acetaminophen (Hydrocodone/Acetamophen 5/325mg Tab) 1 - 2 tab PO Q4H PRN PRN Reason: Pain & Pre PT Stop: 05/16/24 14:58 Last Admin: 05/03/24 08:36 Dose: 1 tab Al Hydrox/Mg Hydrox/Simethicone (Aluminum/Magnesium Susp 30 Ml Udc) 30 ml PO Q6H PRN PRN Reason: Dyspepsia Stop: 06/01/24 14:58 Atorvastatin Calcium (Atorvastatin 40 Mg Tab) 40 mg PO QPM [facility] Stop: 06/01/24 20:59 Last Admin: 05/03/24 20:09 Dose: 40 mg Bisacodyl (Bisacodyl 10 Mg Supp) 10 mg [place] DAILY PRN PRN Reason: Constipation Stop: 06/01/24 14:58 Diphenhydramine HCl (Diphenhydramine Capsule 25 Mg Cap) 25 mg PO Q6H PRN PRN Reason: Allergic Rhinitis/Insomnia Stop: 06/01/24 14:58 Enoxaparin Sodium (Enoxaparin Inj 120 Mg/0.8 Ml Syr) 120 mg SQ Q12H [facility] Stop: 06/02/24 18:59 Last Admin: 05/04/24 07:12 Dose: 120 mg Famotidine (Famotidine 20 Mg Tab) 20 mg PO Q12H PRN PRN Reason: Dyspepsia Stop: 06/01/24 14:58 Hydromorphone HCl (Hydromorphone Inj 0.5 Mg/0.5 Ml Syr) 0.5 mg IV Q3H PRN PRN Reason: MODERATE Pain (Scale 4,5,6) & Pre PT Stop: 05/16/24 14:58 Hydromorphone HCl (Hydromorphone Inj 1 Mg/Ml Syringe) 1 mg IV Q3H PRN PRN Reason: SEVERE Pain (Scale 7,8,9,10) Stop: 05/16/24 14:58 Hydroxyzine HCl (Hydroxyzine Hcl 25 Mg Tab) 25 mg PO Q8H PRN PRN Reason: Anxiety Stop: 06/01/24 14:58 Promethazine HCl (Phenergan) 12.5 mg in 50.5 mls @ 202 mls/hr IV Q6H PRN PRN Reason: Nausea And Vomiting Stop: 06/01/24 14:58 Dexamethasone 6 mg/ Syringe 1.5 mls @ 1 mls/min IV DAILY [facility] Stop: 05/05/24 09:02 Last Admin: 05/04/24 07:12 Dose: 1 mls/min Influenza Virus Vaccine Quadrival (Do Not Administer Flu Vaccine) 1 each N/A PRN PRN PRN Reason: Notification Stop: 06/01/24 14:58 Lorazepam (Lorazepam 0.5 Mg Tab) 0.5 mg PO Q8H PRN PRN Reason: Sedation/Anxiety Stop: 06/01/24 14:58 Lorazepam (Lorazepam 2 Mg/1 Ml Vial) 0.5 mg IV Q8H PRN PRN Reason: Sedation/Anxiety Stop: 06/01/24 14:58 Magnesium Hydroxide (Magnesium Hydroxide Susp 30 Ml Udc) 30 ml PO Q24H PRN PRN Reason: Constipation Stop: 06/01/24 14:58 Metoclopramide HCl (Metoclopramide Hcl Inj 5 Mg/Ml 2 Ml Vial) 10 mg IV Q6H PRN PRN Reason: Nausea &/or Vomiting Stop: 06/01/24 14:58 Naloxone HCl (Naloxone Hcl 0.4 Mg/1 Ml Vial/Carp) 0.1 mg IV Q5M PRN PRN Reason: Oversedation/Resp depression Stop: 06/01/24 14:58 Ondansetron HCl (Ondansetron Inj 2 Mg/Ml 2 Ml Vial) 4 mg IV Q6H PRN PRN Reason: Nausea &/or Vomiting Stop: 06/01/24 14:58 Ondansetron HCl (Ondansetron 4 Mg Od Tab) 4 mg PO Q6H PRN PRN Reason: Nausea Stop: 06/01/24 14:58 Pneumococcal Polyvalent Vaccine (Do Not Administer Pneumococcal Vaccine) 1 each N/A PRN PRN PRN Reason: Notification Stop: 06/01/24 14:58 Polyethylene Glycol (Polyethylene (Miralax) 17 Gm Pack) 17 gm PO Q6 [facility] Stop: 06/02/24 05:59 Last Admin: 05/04/24 05:39 Dose: 17 gm Senna/Docusate Sodium (Docusate Sodium/Senna 50/8.6mg Tab) 2 tab PO HS [facility] Stop: 06/01/24 20:59 Last Admin: 05/03/24 20:08 Dose: 2 tab Sodium Biphosphate/Sodium Phosphate (Sod Phosphate/Sod Biphosphate Enema 132 Ml Btl) 132 ml [place] ONE PRN PRN Reason: Constipation Stop: 06/01/24 14:58 Tramadol HCl (Tramadol Hcl 50 Mg Tablet) 50 - 100 mg PO Q4H PRN PRN Reason: Moderate-Severe pain & Pre PT Stop: 06/01/24 14:58 Last Admin: 05/03/24 02:12 Dose: 100 mg Warfarin Sodium (Warfarin Sod 10 Mg Tab) 10 mg PO DAILY@1600 [facility] Stop: 06/02/24 18:59 Last Admin: 05/03/24 18:14 Dose: 10 mg (3) CVA (cerebral vascular accident) CVA mechanism: unspecified Qualified Code(s): I63.9 - Cerebral infarction, unspecified (4) Sleep apnea Sleep apnea type: obstructive Qualified Code(s): G47.33 - Obstructive sleep apnea (adult) (pediatric)
== END 2024-05-04 14:33 | disposition home or self-care (01) | DRG 402 ==
LOC: ASU 08:18 → SUATTDRO 12:49 → 3E 12:49